=== PATIENT | female | born 1955 | race Asian ===

== ENCOUNTER 2020-11-06 14:06 | Inpatient (IN) | payer OTHER ==
[~2020-11-06] VITALS: Ht 160 cm; Wt 54.2 kg
[~2020-11-06 14:06] MED LIST: AMLO10TA55 PO; ASPI-556 PO; BENA10TA77 PO; CYCL10TA7 PO; DIPH50 PO; ERGO400T3 PO; GLIP5TAB11 PO; LEVO75 PO; METF-444 PO; OMEP20 PO; PRED10TA3 PO; PRED20TA3 PO; PRED50TA2 PO
[2020-11-06] MEDS ORDERED: IOHEXOL 350 MG/ML 75 ML VIAL ONE (14:17)
[2020-11-06] MEDS ORDERED: SODIUM CHLORIDE 0.9% 100 ML ONE (14:17)
[2020-11-06] MEDS ORDERED: LABETALOL HCL 5 MG/ML 20 ML VIAL IVP ONE (15:00)
[2020-11-06 15:33] LABS: BASOPHILS % (AUTO) 0.9 % (0.0-2.0); EOSINOPHILS % (AUTO) 0.9 % (1.0-6.0); HEMATOCRIT 32.7 % (36-46); HEMOGLOBIN 10.6 g/dL (12.0-16.0); LYMPHOCYTES # (AUTO) 1.4 K/uL (1.0-4.8); LYMPHOCYTES % (AUTO) 13.6 % (22.0-44.0); MEAN CORPUSCULAR HGB CONC 32.4 G/dL (31.0-37.0); MEAN CORPUSCULAR VOLUME 86 fL (80-100); MONOCYTES # (AUTO) 0.6 K/uL (0.1-1.0); MONOCYTES % (AUTO) 5.9 % (2.0-9.0); NEUTROPHILS # (AUTO) 8.1 K/uL (1.8-7.7); NEUTROPHILS % (AUTO) 78.7 % (40.0-70.0); PLATELET COUNT (AUTO) 346 K/uL (150-450); RED BLOOD CELL COUNT(AUTO) 3.78 MIL/uL (4.00-5.20); RED CELL DISTRIBUTION WIDTH 15.6 % (11.5-14.5)
[2020-11-06 15:43] LABS: PROTHROMBIN TIME 10.9 SEC (9.4-11.6)
[2020-11-06 15:49] LABS: CREATININE 1.05 mg/dL (0.60-1.30); POTASSIUM 3.7 mmol/L (3.5-5.1)
[2020-11-06 15:55] LABS: ALBUMIN 2.3 g/dL (3.4-5.0); BILIRUBIN,TOTAL 0.4 mg/dL (0.1-1.0)
[2020-11-06] MEDS ORDERED: NiCARDipine HCL 25 MG in DEXTROSE 5%-WATER 240 ML IV PRN (16:00)
[2020-11-06 17:57] LABS: COVID AG,FIA SOURCE NASOPHARYNGEAL
[2020-11-06 22:12] LABS: HEMOGLOBIN A1C 6.4 % (3.8-5.6)
[2020-11-06 22:20] LABS: CHOL/HDL RATIO 4.4 (3.9-5.7); THYROID STIMULATING HORMONE 6.14 uIU/mL (0.36-3.74)
[2020-11-06] MEDS: NiCARDipine HCL 25 MG in DEXTROSE 5%-WATER 240 ML IV PRN (22:25)
[2020-11-06] MEDS ORDERED: ASPIRIN 300 MG RECTAL SUPPOSITORY PR ONE (22:45)
[2020-11-07 07:04] LABS: BASOPHILS % (AUTO) 1.1 % (0.0-2.0); EOSINOPHILS % (AUTO) 1.5 % (1.0-6.0); HEMATOCRIT 36.3 % (36-46); HEMOGLOBIN 11.8 g/dL (12.0-16.0); LYMPHOCYTES # (AUTO) 2.1 K/uL (1.0-4.8); LYMPHOCYTES % (AUTO) 19.6 % (22.0-44.0); MEAN CORPUSCULAR HGB CONC 32.6 G/dL (31.0-37.0); MEAN CORPUSCULAR VOLUME 86 fL (80-100); MONOCYTES # (AUTO) 0.7 K/uL (0.1-1.0); MONOCYTES % (AUTO) 6.5 % (2.0-9.0); NEUTROPHILS # (AUTO) 7.5 K/uL (1.8-7.7); NEUTROPHILS % (AUTO) 71.3 % (40.0-70.0); PLATELET COUNT (AUTO) 396 K/uL (150-450); RED BLOOD CELL COUNT(AUTO) 4.23 MIL/uL (4.00-5.20); RED CELL DISTRIBUTION WIDTH 15.6 % (11.5-14.5)
[2020-11-07 07:25] LABS: ALBUMIN 2.7 g/dL (3.4-5.0); BILIRUBIN,TOTAL 0.4 mg/dL (0.1-1.0); CALCIUM, TOTAL 8.6 mg/dL (8.8-10.5); CREATININE 1.18 mg/dL (0.60-1.30); POTASSIUM 3.8 mmol/L (3.5-5.1); TOTAL PROTEIN, SERUM 6.9 g/dL (6.4-8.2)
[2020-11-07 08:00] VITALS: BP 164/66
[2020-11-07] MEDS ORDERED: DEXTROSE 50%-WATER 25 GM/50 ML SYRINGE IVP PRN (11:15)
[2020-11-07] MEDS ORDERED: ALBUTEROL SULFATE 2.5 MG/0.5 ML NEB SOLUTION NEB PRN (11:30)
[2020-11-07] MEDS ORDERED: IPRATROPIUM BROMIDE 0.5 MG/2.5 ML NEB SOLUTION NEB PRN (11:30)
[2020-11-07] MEDS ORDERED: BISACODYL 10 MG RECTAL RECTAL SUPPOSITORY PR PRN (11:45)
[2020-11-07] MEDS: ASPIRIN 300 MG RECTAL SUPPOSITORY PR SCH (11:47)
[2020-11-07] MEDS: PANTOPRAZOLE SODIUM 40 MG/VIAL IVP SCH (11:48)
[2020-11-07] MEDS: LEVOTHYROXINE SODIUM 100 MCG VIAL IVP SCH (12:31)
[2020-11-07] MEDS: NiCARDipine HCL 25 MG in DEXTROSE 5%-WATER 240 ML IV PRN ×3 (14:03→22:56)
[2020-11-07] MEDS: ALBUTEROL SULFATE 2.5 MG/0.5 ML NEB SOLUTION NEB SCH ×2 (16:09→20:00)
[2020-11-07] MEDS: IPRATROPIUM BROMIDE 0.5 MG/2.5 ML NEB SOLUTION NEB SCH ×2 (16:09→20:00)
[2020-11-08] MEDS: NiCARDipine HCL 25 MG in DEXTROSE 5%-WATER 240 ML IV PRN ×2 (02:19→05:57)
[2020-11-08 06:48] LABS: BASOPHILS % (AUTO) 1.1 % (0.0-2.0); EOSINOPHILS % (AUTO) 1.4 % (1.0-6.0); HEMOGLOBIN 11.2 g/dL (12.0-16.0); LYMPHOCYTES # (AUTO) 1.6 K/uL (1.0-4.8); LYMPHOCYTES % (AUTO) 13.2 % (22.0-44.0); MEAN CORPUSCULAR HGB CONC 32.9 G/dL (31.0-37.0); MEAN CORPUSCULAR VOLUME 85 fL (80-100); MONOCYTES % (AUTO) 8.1 % (2.0-9.0); NEUTROPHILS # (AUTO) 9.1 K/uL (1.8-7.7); NEUTROPHILS % (AUTO) 76.2 % (40.0-70.0); PLATELET COUNT (AUTO) 401 K/uL (150-450); RED BLOOD CELL COUNT(AUTO) 3.99 MIL/uL (4.00-5.20); RED CELL DISTRIBUTION WIDTH 15.3 % (11.5-14.5)
[2020-11-08 07:14] LABS: ALBUMIN 2.6 g/dL (3.4-5.0); BILIRUBIN,TOTAL 0.5 mg/dL (0.1-1.0); CALCIUM, TOTAL 8.6 mg/dL (8.8-10.5); CREATININE 1.39 mg/dL (0.60-1.30); POTASSIUM 4.1 mmol/L (3.5-5.1); TOTAL PROTEIN, SERUM 6.6 g/dL (6.4-8.2)
[2020-11-08] MEDS: ALBUTEROL SULFATE 2.5 MG/0.5 ML NEB SOLUTION NEB SCH ×3 (07:45→20:46)
[2020-11-08] MEDS: IPRATROPIUM BROMIDE 0.5 MG/2.5 ML NEB SOLUTION NEB SCH ×3 (07:45→20:46)
[2020-11-08] MEDS: ASPIRIN 300 MG RECTAL SUPPOSITORY PR SCH (09:00)
[2020-11-08] MEDS: PANTOPRAZOLE SODIUM 40 MG/VIAL IVP SCH (09:00)
[2020-11-08] MEDS: LEVOTHYROXINE SODIUM 100 MCG VIAL IVP SCH (09:00)
[2020-11-08] MEDS ORDERED: LABETALOL HCL 5 MG/ML 20 ML VIAL IVP PRN (10:30)
[2020-11-08 12:27] VITALS: BP 163/82
[2020-11-08 13:14] LABS: GLUCOMETER DEV NAME(LOC) 5N.3; GLUCOSE,POINT OF CARE 199 MG/DL (70-110)
[2020-11-08 16:24] VITALS: BP 160/79
[2020-11-08] MEDS: SODIUM CHLORIDE 0.9% 1,000 ML IV SCH (17:14)
[2020-11-08 19:05] VITALS: BP 154/80
[2020-11-08 19:15] LABS: GLUCOMETER DEV NAME(LOC) 5N.1C; GLUCOSE,POINT OF CARE 157 MG/DL (70-110)
[2020-11-08] MEDS: INSULIN LISPRO 100 UNITS/ML SQ PRN (20:43)
[2020-11-08 20:54] LABS: GLUCOMETER DEV NAME(LOC) 5S.1; GLUCOSE,POINT OF CARE 165 MG/DL (70-110)
[2020-11-09] VITALS (7 sets, daily range): BP systolic 152–194; BP diastolic 74–113
[2020-11-09] MEDS: INSULIN LISPRO 100 UNITS/ML SQ PRN ×3 (02:28→20:39)
[2020-11-09 02:39] LABS: GLUCOMETER DEV NAME(LOC) 5N.1C; GLUCOSE,POINT OF CARE 125 MG/DL (70-110)
[2020-11-09 05:43] LABS: GLUCOMETER DEV NAME(LOC) 5N.1C; GLUCOSE,POINT OF CARE 120 MG/DL (70-110)
[2020-11-09 07:01] LABS: BASOPHILS % (AUTO) 0.7 % (0.0-2.0); EOSINOPHILS % (AUTO) 0.7 % (1.0-6.0); HEMATOCRIT 32.8 % (36-46); HEMOGLOBIN 10.7 g/dL (12.0-16.0); LYMPHOCYTES # (AUTO) 1.3 K/uL (1.0-4.8); LYMPHOCYTES % (AUTO) 11.5 % (22.0-44.0); MEAN CORPUSCULAR HEMOGLOBIN 28.2 pg (26.0-34.0); MEAN CORPUSCULAR HGB CONC 32.5 G/dL (31.0-37.0); MEAN CORPUSCULAR VOLUME 87 fL (80-100); MONOCYTES # (AUTO) 0.9 K/uL (0.1-1.0); MONOCYTES % (AUTO) 8.1 % (2.0-9.0); NEUTROPHILS # (AUTO) 8.6 K/uL (1.8-7.7); PLATELET COUNT (AUTO) 365 K/uL (150-450); RED BLOOD CELL COUNT(AUTO) 3.78 MIL/uL (4.00-5.20); RED CELL DISTRIBUTION WIDTH 15.3 % (11.5-14.5)
[2020-11-09 07:15] LABS: ALBUMIN 2.3 g/dL (3.4-5.0); BILIRUBIN,TOTAL 0.4 mg/dL (0.1-1.0); CALCIUM, TOTAL 7.9 mg/dL (8.8-10.5); CREATININE 1.28 mg/dL (0.60-1.30); POTASSIUM 3.4 mmol/L (3.5-5.1); TOTAL PROTEIN, SERUM 6.2 g/dL (6.4-8.2)
[2020-11-09] MEDS: CLOPIDOGREL BISULFATE 75 MG TABLET PO SCH (08:45)
[2020-11-09] MEDS: PANTOPRAZOLE SODIUM 40 MG/VIAL IVP SCH (08:45)
[2020-11-09] MEDS: LEVOTHYROXINE SODIUM 75 MCG TABLET PO SCH (10:14)
[2020-11-09] MEDS: ASPIRIN 81 MG CHEWABLE TABLET PO SCH (10:14)
[2020-11-09] MEDS: LISINOPRIL 5 MG TABLET PO SCH (10:14)
[2020-11-09] MEDS: ALBUTEROL SULFATE 2.5 MG/0.5 ML NEB SOLUTION NEB SCH ×3 (10:28→19:57)
[2020-11-09] MEDS: IPRATROPIUM BROMIDE 0.5 MG/2.5 ML NEB SOLUTION NEB SCH ×3 (10:28→19:57)
[2020-11-09] MEDS ORDERED: POTASSIUM CHL 10 MEQ/WATER 50 ML IV PRN (14:30)
[2020-11-09 15:43] LABS: GLUCOMETER DEV NAME(LOC) 5S.2B; GLUCOSE,POINT OF CARE 145 MG/DL (70-110)
[2020-11-09] MEDS: POTASSIUM CHLORIDE 20 MEQ ER TABLET PO PRN (18:31)
[2020-11-09] MEDS: ENALAPRILAT DIHYDRATE 1.25 MG/ML VIAL IVP PRN (20:51)
[2020-11-09] MEDS: SODIUM CHLORIDE 0.9% 1,000 ML IV SCH ×2 (20:52→20:53)
[2020-11-09] MEDS ORDERED: SIMVASTATIN 40 MG TABLET PO SCH (21:00)
[2020-11-10] VITALS (11 sets, daily range): BP systolic 142–203; BP diastolic 66–106
[2020-11-10] MEDS ORDERED: METOPROLOL SUCCINATE 25 MG ER TABLET PO SCH
[2020-11-10] MEDS: AmLODIPine BESYLATE 5 MG TABLET PO SCH ×2 (00:10→08:10)
[2020-11-10] MEDS: ENALAPRILAT DIHYDRATE 1.25 MG/ML VIAL IVP PRN ×3 (04:33→18:17)
[2020-11-10] MEDS: LEVOTHYROXINE SODIUM 75 MCG TABLET PO SCH (04:33)
[2020-11-10 05:26] LABS: GLUCOMETER DEV NAME(LOC) 5S.1; GLUCOSE,POINT OF CARE 217 MG/DL (70-110)
[2020-11-10 05:26] LABS: GLUCOMETER DEV NAME(LOC) 5S.1; GLUCOSE,POINT OF CARE 140 MG/DL (70-110)
[2020-11-10 05:28] LABS: GLUCOMETER DEV NAME(LOC) 5S.1; GLUCOSE,POINT OF CARE 128 MG/DL (70-110)
[2020-11-10] MEDS: CloNIDine HCL 0.1 MG TABLET PO PRN ×2 (06:52→16:39)
[2020-11-10 07:00] LABS: BASOPHILS % (AUTO) 0.7 % (0.0-2.0); EOSINOPHILS % (AUTO) 2.1 % (1.0-6.0); HEMATOCRIT 34.8 % (36-46); HEMOGLOBIN 11.2 g/dL (12.0-16.0); LYMPHOCYTES # (AUTO) 1.8 K/uL (1.0-4.8); LYMPHOCYTES % (AUTO) 15.3 % (22.0-44.0); MEAN CORPUSCULAR HGB CONC 32.2 G/dL (31.0-37.0); MEAN CORPUSCULAR VOLUME 87 fL (80-100); MONOCYTES # (AUTO) 1.2 K/uL (0.1-1.0); MONOCYTES % (AUTO) 9.9 % (2.0-9.0); NEUTROPHILS # (AUTO) 8.5 K/uL (1.8-7.7); PLATELET COUNT (AUTO) 359 K/uL (150-450); RED BLOOD CELL COUNT(AUTO) 4.01 MIL/uL (4.00-5.20); RED CELL DISTRIBUTION WIDTH 15.7 % (11.5-14.5)
[2020-11-10 07:17] LABS: ALBUMIN 2.4 g/dL (3.4-5.0); BILIRUBIN,TOTAL 0.4 mg/dL (0.1-1.0); CALCIUM, TOTAL 8.5 mg/dL (8.8-10.5); CREATININE 1.06 mg/dL (0.60-1.30); POTASSIUM 4.1 mmol/L (3.5-5.1); TOTAL PROTEIN, SERUM 6.7 g/dL (6.4-8.2)
[2020-11-10] MEDS: PANTOPRAZOLE SODIUM 40 MG/VIAL IVP SCH (08:10)
[2020-11-10] MEDS: CLOPIDOGREL BISULFATE 75 MG TABLET PO SCH (08:10)
[2020-11-10] MEDS: ASPIRIN 81 MG CHEWABLE TABLET PO SCH (08:10)
[2020-11-10] MEDS: LISINOPRIL 5 MG TABLET PO SCH (08:10)
[2020-11-10] MEDS: METOPROLOL SUCCINATE 50 MG ER TABLET PO SCH ×2 (08:11→21:16)
[2020-11-10] MEDS: ALBUTEROL SULFATE 2.5 MG/0.5 ML NEB SOLUTION NEB SCH ×3 (08:42→20:51)
[2020-11-10] MEDS: IPRATROPIUM BROMIDE 0.5 MG/2.5 ML NEB SOLUTION NEB SCH ×3 (08:42→20:51)
[2020-11-10] MEDS ORDERED: LISINOPRIL 10 MG TABLET PO SCH (10:00)
[2020-11-10] MEDS ORDERED: LISINOPRIL 5 MG TABLET PO ONE (10:15)
[2020-11-10] MEDS: SODIUM CHLORIDE 0.9% 1,000 ML IV SCH (10:56)
[2020-11-10] MEDS: INSULIN LISPRO 100 UNITS/ML SQ PRN ×2 (12:19→18:16)
[2020-11-10 13:35] LABS: GLUCOMETER DEV NAME(LOC) 5S.2B; GLUCOSE,POINT OF CARE 136 MG/DL (70-110)
[2020-11-10 13:35] LABS: GLUCOMETER DEV NAME(LOC) 5S.2B; GLUCOSE,POINT OF CARE 167 MG/DL (70-110)
[2020-11-10 20:44] LABS: GLUCOMETER DEV NAME(LOC) 5S.2B; GLUCOSE,POINT OF CARE 143 MG/DL (70-110)
[2020-11-10 20:44] LABS: GLUCOMETER DEV NAME(LOC) 5S.2B; GLUCOSE,POINT OF CARE 131 MG/DL (70-110)
[2020-11-10] MEDS: ATORVASTATIN CALCIUM 40 MG TABLET PO SCH (21:16)
[2020-11-10] MEDS: LISINOPRIL 10 MG TABLET PO SCH (21:16)
[2020-11-11] VITALS (14 sets, daily range): BP systolic 163–204; BP diastolic 70–88
[2020-11-11] MEDS: CloNIDine HCL 0.1 MG TABLET PO PRN ×2 (00:10→09:12)
[2020-11-11] MEDS: SODIUM CHLORIDE 0.9% 1,000 ML IV SCH ×2 (00:10→13:45)
[2020-11-11] MEDS: ENALAPRILAT DIHYDRATE 1.25 MG/ML VIAL IVP PRN ×2 (05:11→14:46)
[2020-11-11 06:11] LABS: GLUCOMETER DEV NAME(LOC) 5S.2B; GLUCOSE,POINT OF CARE 133 MG/DL (70-110)
[2020-11-11 07:15] LABS: BASOPHILS % (AUTO) 0.8 % (0.0-2.0); HEMATOCRIT 31.8 % (36-46); HEMOGLOBIN 10.4 g/dL (12.0-16.0); LYMPHOCYTES # (AUTO) 2.4 K/uL (1.0-4.8); LYMPHOCYTES % (AUTO) 22.4 % (22.0-44.0); MEAN CORPUSCULAR HEMOGLOBIN 28.2 pg (26.0-34.0); MEAN CORPUSCULAR HGB CONC 32.7 G/dL (31.0-37.0); MEAN CORPUSCULAR VOLUME 86 fL (80-100); MONOCYTES # (AUTO) 1.1 K/uL (0.1-1.0); MONOCYTES % (AUTO) 9.8 % (2.0-9.0); NEUTROPHILS # (AUTO) 6.8 K/uL (1.8-7.7); PLATELET COUNT (AUTO) 334 K/uL (150-450); RED BLOOD CELL COUNT(AUTO) 3.68 MIL/uL (4.00-5.20); RED CELL DISTRIBUTION WIDTH 15.5 % (11.5-14.5)
[2020-11-11 07:51] LABS: ALBUMIN 2.2 g/dL (3.4-5.0); BILIRUBIN,TOTAL 0.3 mg/dL (0.1-1.0); CALCIUM, TOTAL 8.5 mg/dL (8.8-10.5); CREATININE 1.06 mg/dL (0.60-1.30); POTASSIUM 3.8 mmol/L (3.5-5.1); TOTAL PROTEIN, SERUM 6.3 g/dL (6.4-8.2)
[2020-11-11] MEDS: PANTOPRAZOLE SODIUM 40 MG/VIAL IVP SCH (08:05)
[2020-11-11] MEDS: CLOPIDOGREL BISULFATE 75 MG TABLET PO SCH (08:05)
[2020-11-11] MEDS: LEVOTHYROXINE SODIUM 75 MCG TABLET PO SCH (08:05)
[2020-11-11] MEDS: ASPIRIN 81 MG CHEWABLE TABLET PO SCH (08:05)
[2020-11-11] MEDS: AmLODIPine BESYLATE 5 MG TABLET PO SCH (08:05)
[2020-11-11] MEDS: METOPROLOL SUCCINATE 50 MG ER TABLET PO SCH ×2 (08:05→20:00)
[2020-11-11] MEDS: LISINOPRIL 10 MG TABLET PO SCH (08:06)
[2020-11-11] MEDS: ALBUTEROL SULFATE 2.5 MG/0.5 ML NEB SOLUTION NEB SCH ×3 (08:20→20:30)
[2020-11-11] MEDS: IPRATROPIUM BROMIDE 0.5 MG/2.5 ML NEB SOLUTION NEB SCH ×3 (08:20→20:30)
[2020-11-11] MEDS ORDERED: LISINOPRIL 10 MG TABLET PO ONE (10:45)
[2020-11-11] MEDS ORDERED: SPIR-37 PO (11:32)
[2020-11-11] MEDS ORDERED: AMLO-257 PO (11:32)
[2020-11-11] MEDS ORDERED: HYDR-4174 PO (11:32)
[2020-11-11] MEDS ORDERED: CARV25TA32 PO (11:32)
[2020-11-11] MEDS ORDERED: ATOR-2 PO (11:32)
[2020-11-11] MEDS ORDERED: CHOL400T56 PO (11:32)
[2020-11-11] MEDS ORDERED: LEVO50 PO (11:32)
[2020-11-11] MEDS ORDERED: INSU100I26 SQ (11:32)
[2020-11-11] MEDS ORDERED: ASPI-1444 PO (11:32)
[2020-11-11 11:36] LABS: GLUCOMETER DEV NAME(LOC) 5S.1; GLUCOSE,POINT OF CARE 147 MG/DL (70-110)
[2020-11-11] MEDS ORDERED: HydrALAZINE HCL 25 MG TABLET PO SCH (12:00)
[2020-11-11] MEDS: INSULIN LISPRO 100 UNITS/ML SQ PRN ×2 (12:16→21:27)
[2020-11-11] MEDS ORDERED: LISINOPRIL 20 MG TABLET PO ONE (16:15)
[2020-11-11] MEDS: NIFEdipine 30 MG ER TABLET PO SCH (17:51)
[2020-11-11] MEDS: HydrALAZINE HCL 50 MG TABLET PO SCH (19:52)
[2020-11-11] MEDS: ATORVASTATIN CALCIUM 40 MG TABLET PO SCH (20:00)
[2020-11-11] MEDS ORDERED: LISINOPRIL 20 MG TABLET PO SCH (21:00)
[2020-11-11 21:29] LABS: GLUCOMETER DEV NAME(LOC) 5S.2B; GLUCOSE,POINT OF CARE 169 MG/DL (70-110)
[2020-11-11] MEDS: AmLODIPine BESYLATE 10 MG TABLET PO SCH (21:51)
[2020-11-12] VITALS (9 sets, daily range): BP systolic 126–165; BP diastolic 60–76
[2020-11-12] MEDS: HydrALAZINE HCL 50 MG TABLET PO SCH ×5 (00:23→23:48)
[2020-11-12] MEDS: SODIUM CHLORIDE 0.9% 1,000 ML IV SCH ×2 (02:37→17:18)
[2020-11-12 02:52] LABS: GLUCOMETER DEV NAME(LOC) 5S.1; GLUCOSE,POINT OF CARE 109 MG/DL (70-110)
[2020-11-12] MEDS: LEVOTHYROXINE SODIUM 75 MCG TABLET PO SCH (05:58)
[2020-11-12 06:18] LABS: GLUCOMETER DEV NAME(LOC) 5S.1; GLUCOSE,POINT OF CARE 113 MG/DL (70-110)
[2020-11-12 07:15] LABS: BASOPHILS % (AUTO) 0.9 % (0.0-2.0); EOSINOPHILS % (AUTO) 4.7 % (1.0-6.0); HEMATOCRIT 34.1 % (36-46); LYMPHOCYTES # (AUTO) 2.2 K/uL (1.0-4.8); LYMPHOCYTES % (AUTO) 22.3 % (22.0-44.0); MEAN CORPUSCULAR HGB CONC 32.4 G/dL (31.0-37.0); MEAN CORPUSCULAR VOLUME 87 fL (80-100); MONOCYTES # (AUTO) 0.8 K/uL (0.1-1.0); MONOCYTES % (AUTO) 8.6 % (2.0-9.0); NEUTROPHILS # (AUTO) 6.1 K/uL (1.8-7.7); NEUTROPHILS % (AUTO) 63.5 % (40.0-70.0); PLATELET COUNT (AUTO) 361 K/uL (150-450); RED BLOOD CELL COUNT(AUTO) 3.94 MIL/uL (4.00-5.20); RED CELL DISTRIBUTION WIDTH 15.3 % (11.5-14.5)
[2020-11-12 07:44] LABS: ALBUMIN 2.2 g/dL (3.4-5.0); BILIRUBIN,TOTAL 0.4 mg/dL (0.1-1.0); CALCIUM, TOTAL 8.5 mg/dL (8.8-10.5); CREATININE 0.94 mg/dL (0.60-1.30); MAGNESIUM 1.9 mg/dL (1.80-2.40); POTASSIUM 3.5 mmol/L (3.5-5.1); TOTAL PROTEIN, SERUM 6.3 g/dL (6.4-8.2)
[2020-11-12] MEDS: ALBUTEROL SULFATE 2.5 MG/0.5 ML NEB SOLUTION NEB SCH ×3 (07:46→19:54)
[2020-11-12] MEDS: IPRATROPIUM BROMIDE 0.5 MG/2.5 ML NEB SOLUTION NEB SCH ×3 (07:46→19:54)
[2020-11-12] MEDS: PANTOPRAZOLE SODIUM 40 MG/VIAL IVP SCH (08:07)
[2020-11-12] MEDS: ASPIRIN 81 MG CHEWABLE TABLET PO SCH (08:08)
[2020-11-12] MEDS: AmLODIPine BESYLATE 10 MG TABLET PO SCH (08:08)
[2020-11-12] MEDS: CLOPIDOGREL BISULFATE 75 MG TABLET PO SCH (08:08)
[2020-11-12] MEDS: LISINOPRIL 20 MG TABLET PO SCH (09:00)
[2020-11-12] MEDS: NIFEdipine 30 MG ER TABLET PO SCH ×2 (09:08→20:36)
[2020-11-12] MEDS: METOPROLOL SUCCINATE 50 MG ER TABLET PO SCH ×2 (10:44→20:36)
[2020-11-12 12:36] LABS: GLUCOMETER DEV NAME(LOC) 5S.2B; GLUCOSE,POINT OF CARE 137 MG/DL (70-110)
[2020-11-12 18:38] LABS: COVID AG,FIA SOURCE NASOPHARYNGEAL
[2020-11-12] MEDS: INSULIN LISPRO 100 UNITS/ML SQ PRN ×2 (18:42→21:41)
[2020-11-12 20:30] LABS: GLUCOMETER DEV NAME(LOC) 5S.1; GLUCOSE,POINT OF CARE 154 MG/DL (70-110)
[2020-11-12] MEDS: ATORVASTATIN CALCIUM 40 MG TABLET PO SCH (20:36)
[2020-11-12 22:01] LABS: GLUCOMETER DEV NAME(LOC) 5S.1; GLUCOSE,POINT OF CARE 151 MG/DL (70-110)
[2020-11-13 04:12] VITALS: BP 155/69
[2020-11-13] MEDS: HydrALAZINE HCL 50 MG TABLET PO SCH ×4 (06:36→23:27)
[2020-11-13] MEDS: LEVOTHYROXINE SODIUM 75 MCG TABLET PO SCH (06:36)
[2020-11-13] MEDS: SODIUM CHLORIDE 0.9% 1,000 ML IV SCH ×2 (06:37→20:24)
[2020-11-13 06:40] LABS: GLUCOMETER DEV NAME(LOC) 5N.3; GLUCOSE,POINT OF CARE 134 MG/DL (70-110)
[2020-11-13 06:50] LABS: BASOPHILS % (AUTO) 0.9 % (0.0-2.0); EOSINOPHILS % (AUTO) 3.6 % (1.0-6.0); HEMATOCRIT 34.4 % (36-46); HEMOGLOBIN 11.1 g/dL (12.0-16.0); LYMPHOCYTES # (AUTO) 1.7 K/uL (1.0-4.8); LYMPHOCYTES % (AUTO) 14.9 % (22.0-44.0); MEAN CORPUSCULAR HEMOGLOBIN 27.6 pg (26.0-34.0); MEAN CORPUSCULAR HGB CONC 32.2 G/dL (31.0-37.0); MEAN CORPUSCULAR VOLUME 86 fL (80-100); MONOCYTES # (AUTO) 0.9 K/uL (0.1-1.0); MONOCYTES % (AUTO) 8.1 % (2.0-9.0); NEUTROPHILS # (AUTO) 8.2 K/uL (1.8-7.7); NEUTROPHILS % (AUTO) 72.5 % (40.0-70.0); PLATELET COUNT (AUTO) 384 K/uL (150-450); RED BLOOD CELL COUNT(AUTO) 4.01 MIL/uL (4.00-5.20); RED CELL DISTRIBUTION WIDTH 15.2 % (11.5-14.5)
[2020-11-13 07:32] VITALS: BP 157/67
[2020-11-13 07:35] LABS: ALBUMIN 2.4 g/dL (3.4-5.0); BILIRUBIN,TOTAL 0.3 mg/dL (0.1-1.0); CALCIUM, TOTAL 8.4 mg/dL (8.8-10.5); CREATININE 1.04 mg/dL (0.60-1.30); POTASSIUM 3.4 mmol/L (3.5-5.1); TOTAL PROTEIN, SERUM 6.5 g/dL (6.4-8.2)
[2020-11-13] MEDS: NIFEdipine 30 MG ER TABLET PO SCH ×2 (08:10→20:24)
[2020-11-13] MEDS: ASPIRIN 81 MG CHEWABLE TABLET PO SCH (08:10)
[2020-11-13] MEDS: CLOPIDOGREL BISULFATE 75 MG TABLET PO SCH (08:10)
[2020-11-13] MEDS: PANTOPRAZOLE SODIUM 40 MG/VIAL IVP SCH (08:16)
[2020-11-13] MEDS: IPRATROPIUM BROMIDE 0.5 MG/2.5 ML NEB SOLUTION NEB SCH ×3 (09:35→20:35)
[2020-11-13] MEDS: ALBUTEROL SULFATE 2.5 MG/0.5 ML NEB SOLUTION NEB SCH ×3 (09:35→20:34)
[2020-11-13] MEDS: LISINOPRIL 20 MG TABLET PO SCH (09:57)
[2020-11-13] MEDS: METOPROLOL SUCCINATE 50 MG ER TABLET PO SCH ×2 (09:57→20:24)
[2020-11-13 10:51] VITALS: BP 156/72
[2020-11-13] MEDS: POTASSIUM CHLORIDE 20 MEQ ER TABLET PO PRN (11:47)
[2020-11-13] MEDS ORDERED: CLOP75TA60 PO (12:09)
[2020-11-13] MEDS ORDERED: ATOR40TA28 PO (12:09)
[2020-11-13] MEDS ORDERED: AUD NEB ×2 (12:09→12:13)
[2020-11-13] MEDS ORDERED: ASPI-1450 PO (12:09)
[2020-11-13] MEDS ORDERED: HYDR50TA36 PO (12:10)
[2020-11-13] MEDS ORDERED: LEVO75 PO (12:11)
[2020-11-13] MEDS ORDERED: LISI-894 PO (12:11)
[2020-11-13] MEDS ORDERED: METO-558 PO (12:12)
[2020-11-13] MEDS ORDERED: NIFE30TA5 PO (12:13)
[2020-11-13] MEDS ORDERED: BISA10SU11 PR (12:14)
[2020-11-13] MEDS ORDERED: CLON0.1T2 PO (12:14)
[2020-11-13] MEDS ORDERED: INSU100V SQ (12:15)
[2020-11-13] MEDS: INSULIN LISPRO 100 UNITS/ML SQ PRN ×2 (12:49→18:09)
[2020-11-13 14:50] LABS: GLUCOMETER DEV NAME(LOC) 5S.1; GLUCOSE,POINT OF CARE 156 MG/DL (70-110)
[2020-11-13 15:10] VITALS: BP 148/75
[2020-11-13 19:20] VITALS: BP 160/72
[2020-11-13] MEDS: ATORVASTATIN CALCIUM 40 MG TABLET PO SCH (20:24)
[2020-11-13 22:02] LABS: GLUCOMETER DEV NAME(LOC) 5S.1; GLUCOSE,POINT OF CARE 165 MG/DL (70-110)
[2020-11-13 22:03] LABS: GLUCOMETER DEV NAME(LOC) 5S.1; GLUCOSE,POINT OF CARE 121 MG/DL (70-110)
[2020-11-13 23:20] VITALS: BP 149/70
[2020-11-14 03:40] VITALS: BP 158/77
[2020-11-14] MEDS: LEVOTHYROXINE SODIUM 75 MCG TABLET PO SCH (06:54)
[2020-11-14] MEDS: HydrALAZINE HCL 50 MG TABLET PO SCH ×3 (06:54→17:56)
[2020-11-14 07:19] VITALS: BP 156/71
[2020-11-14] MEDS: LISINOPRIL 20 MG TABLET PO SCH (07:53)
[2020-11-14] MEDS: ASPIRIN 81 MG CHEWABLE TABLET PO SCH (07:53)
[2020-11-14] MEDS: CLOPIDOGREL BISULFATE 75 MG TABLET PO SCH (07:53)
[2020-11-14] MEDS: NIFEdipine 30 MG ER TABLET PO SCH (07:54)
[2020-11-14] MEDS: PANTOPRAZOLE SODIUM 40 MG/VIAL IVP SCH (07:54)
[2020-11-14] MEDS: METOPROLOL SUCCINATE 50 MG ER TABLET PO SCH (07:54)
[2020-11-14] MEDS: ALBUTEROL SULFATE 2.5 MG/0.5 ML NEB SOLUTION NEB SCH ×2 (08:18→13:11)
[2020-11-14] MEDS: IPRATROPIUM BROMIDE 0.5 MG/2.5 ML NEB SOLUTION NEB SCH ×2 (08:18→13:11)
[2020-11-14 11:21] VITALS: BP 164/73
[2020-11-14] MEDS: INSULIN LISPRO 100 UNITS/ML SQ PRN ×2 (11:33→17:58)
[2020-11-14 12:22] LABS: GLUCOMETER DEV NAME(LOC) 5S.1; GLUCOSE,POINT OF CARE 199 MG/DL (70-110)
[2020-11-14 15:11] VITALS: BP 161/67
[2020-11-14] MEDS: CloNIDine HCL 0.1 MG TABLET PO PRN (16:06)
[2020-11-14 19:47] LABS: GLUCOMETER DEV NAME(LOC) 5N.1C; GLUCOSE,POINT OF CARE 138 MG/DL (70-110)
[2020-11-14 19:48] LABS: GLUCOMETER DEV NAME(LOC) 5N.1C; GLUCOSE,POINT OF CARE 193 MG/DL (70-110)
== END 2020-11-14 18:10 | DRG 45 ==
LOC: EMS 14:08 → ICUN 11-07 10:22 → 5S 11-08 10:48
PROVIDERS: ADMIT Hospitalist; ATTEND Hospitalist
DX: I63.9 Cerebral infarction, unspecified (principal); I11.9 Hypertensive heart disease without heart failure; G81.91 Hemiplegia, unspecified affecting right dominant side; E03.9 Hypothyroidism, unspecified; E78.00 Pure hypercholesterolemia, unspecified; E78.5 Hyperlipidemia, unspecified; E11.9 Type 2 diabetes mellitus without complications; R13.10 Dysphagia, unspecified; R29.810 Facial weakness; Z20.822 Contact with and (suspected) exposure to COVID-19; I16.1 Hypertensive emergency; Z79.899 Other long term (current) drug therapy
CPT/HCPCS: 70496; 70551; 71045; 80053; 80061; 82947; 82962; 83036; 83735; 84132; 84443; 84484; 85025; 85610; 85730; 86850; 86900; 86901; 87081; 92507; 92526; 92610; 93005; 93306; 93971; 94640; 97110; 97112; 97140; 97162; 97166; 97530; 97535; 99291; C9113; G0378; J3490; J7030; J7050; J7060; Q9967; 36415-L1; 36415-TC; 70450; 70450-TC; J7613

== ENCOUNTER 2020-11-30 09:26 | Inpatient (IN) | payer MEDICAID, OTHER ==
[~2020-11-30] VITALS: Ht 157.5 cm; Wt 57.5 kg
[~2020-11-30 09:26] MED LIST changes: -AMLO10TA55 PO; +ASPI-1450 PO; -ASPI-556 PO; +ATOR-2 PO; +ATOR40TA28 PO; +AUD NEB; -BENA10TA77 PO; +BISA10SU11 PR; +CHOL400T56 PO; +CLON0.1T2 PO; +CLOP75TA60 PO; -CYCL10TA7 PO; -DIPH50 PO; -ERGO400T3 PO; -GLIP5TAB11 PO; +HYDR50TA36 PO; +INSU100V SQ; +LISI-894 PO; -METF-444 PO; +METO-558 PO; +NIFE30TA5 PO; -PRED10TA3 PO; -PRED20TA3 PO; -PRED50TA2 PO
[2020-11-30] MEDS ORDERED: SODIUM CHLORIDE 0.9% 1,000 ML IV ONE (09:45)
[2020-11-30 09:52] LABS: BASOPHILS % (AUTO) 0.3 % (0.0-2.0); EOSINOPHILS % (AUTO) 0 % (1.0-6.0); HEMOGLOBIN 12.6 g/dL (12.0-16.0); LYMPHOCYTES # (AUTO) 1.2 K/uL (1.0-4.8); LYMPHOCYTES % (AUTO) 6.1 % (22.0-44.0); MEAN CORPUSCULAR HEMOGLOBIN 27.6 pg (26.0-34.0); MEAN CORPUSCULAR HGB CONC 30.8 G/dL (31.0-37.0); MEAN CORPUSCULAR VOLUME 90 fL (80-100); MONOCYTES # (AUTO) 0.9 K/uL (0.1-1.0); MONOCYTES % (AUTO) 4.6 % (2.0-9.0); NEUTROPHILS # (AUTO) 17.3 K/uL (1.8-7.7); PLATELET COUNT (AUTO) 295 K/uL (150-450); RED BLOOD CELL COUNT(AUTO) 4.58 MIL/uL (4.00-5.20); RED CELL DISTRIBUTION WIDTH 15.4 % (11.5-14.5)
[2020-11-30 10:03] LABS: TROPONIN I 0.22 ng/mL (0.00-0.05)
[2020-11-30 10:04] LABS: ALANINE AMINOTRANSFERASE 21 U/L (12-78); ALBUMIN 2.4 g/dL (3.4-5.0); ALKALINE PHOSPHATASE 88 U/L (46-116); ANION GAP 12 mmol/L (8-16); ASPARTATE AMINOTRANSFERASE 20 U/L (15-37); BILIRUBIN,TOTAL 0.3 mg/dL (0.1-1.0); CALCIUM, TOTAL 8.6 mg/dL (8.8-10.5); CARBON DIOXIDE 32 mmol/L (22-29); CHLORIDE 126 mmol/L (98-107); CREATINE KINASE, TOTAL ONLY 582 U/L (26-192); CREATININE 2.99 mg/dL (0.60-1.30); GLOMERULAR FILTR. RATE CALC 16 mL/min (>60); PHOSPHORUS 4.2 mg/dL (2.5-4.9); POTASSIUM 4.4 mmol/L (3.5-5.1); PROTHROMBIN TIME 10.6 SEC (9.4-11.6); TOTAL PROTEIN, SERUM 7.2 g/dL (6.4-8.2); UREA NITROGEN, BLOOD 91 mg/dL (7-18)
[2020-11-30 10:05] LABS: GLUCOSE,POINT OF CARE 406 MG/DL (70-110)
[2020-11-30 10:07] LABS: GLUCOSE,RANDOM 522 mg/dL (70-110); SODIUM SERUM 170 mmol/L (136-145)
[2020-11-30] MEDS ORDERED: INSULIN REGULAR, HUMAN 100 UNITS/ML IVP ONE (10:45)
[2020-11-30 10:47] LABS: B-TYPE NATRIURETIC PEPTIDE 268 pg/mL (0-100)
[2020-11-30] MEDS ORDERED: ONDANSETRON HCL 4 MG/2 ML VIAL IVP PRN ×2 (11:00→15:00)
[2020-11-30] MEDS ORDERED: 0.9% SODIUM CHLORIDE 10 ML SYRINGE IVP PRN (11:00)
[2020-11-30 11:32] LABS: COVID AG,FIA SOURCE NASOPHARYNGEAL
[2020-11-30 11:47] LABS: GLUCOSE,POINT OF CARE 304 MG/DL (70-110)
[2020-11-30 13:25] LABS: APPEARANCE,URINE TURBID (CLEAR); BILIRUBIN,URINE NEGATIVE (NEGATIVE); GLUCOSE, URINE (UA) 100 mg/dL (NEGATIVE); KETONES,URINE TRACE mg/dL (NEGATIVE); LEUKOCYTE ESTERASE ,URINE LARGE (NEGATIVE); NITRATE,URINE NEGATIVE (NEGATIVE); OCCULT BLOOD,URINE SMALL (NEGATIVE); PROTEIN,URINE SEE CONFIRM (NEGATIVE); UROBILINOGEN,URINE 0.2 mg/dL (<=1.0)
[2020-11-30 13:37] LABS: BACTERIA,URINE Many /HPF (None Seen); SULFOSALICYLIC ACID,URINE 3+ (Negative); WBC,URINE 51-100 /HPF (0-5)
[2020-11-30 14:59] LABS: GLUCOSE,POINT OF CARE 317 MG/DL (70-110)
[2020-11-30] MEDS ORDERED: MAGNESIUM HYDROXIDE SUSPENSION 30 ML UDCUP PO PRN (15:00)
[2020-11-30] MEDS ORDERED: DEXTROSE 5%-WATER 500 ML IV ONE (15:00)
[2020-11-30] MEDS ORDERED: DEXTROSE 50%-WATER 25 GM/50 ML SYRINGE IVP PRN (15:00)
[2020-11-30] MEDS ORDERED: ACETAMINOPHEN 325 MG TABLET PO PRN (15:00)
[2020-11-30] MEDS ORDERED: BISACODYL 10 MG RECTAL RECTAL SUPPOSITORY PR PRN (15:00)
[2020-11-30] MEDS ORDERED: ZOLPIDEM TARTRATE 5 MG TABLET PO PRN (15:00)
[2020-11-30] MEDS ORDERED: HYDROCODONE/ACETAMINOPHEN 5-325 MG TABLET PO PRN (15:00)
[2020-11-30] MEDS ORDERED: SODIUM CHLORIDE 38.5 MEQ in WATER FOR INJECTION,STERILE 1,000 ML IV ONE (17:30)
[2020-11-30] MEDS: HydrALAZINE HCL 20 MG/ML VIAL IVP PRN (18:00)
[2020-11-30] MEDS: ATORVASTATIN CALCIUM 40 MG TABLET PO SCH ×3 (20:25→20:55)
[2020-11-30] MEDS: DOCUSATE SODIUM 100 MG CAPSULE PO SCH ×3 (20:25→20:57)
[2020-11-30] MEDS: INSULIN LISPRO 100 UNITS/ML SQ PRN (20:28)
[2020-11-30] MEDS: INSULIN GLARGINE,HUM.REC.ANLOG 100 UNITS/ML SQ SCH (20:29)
[2020-11-30 20:30] LABS: GLUCOSE,POINT OF CARE 377 MG/DL (70-110)
[2020-11-30] MEDS: NIFEdipine 30 MG ER TABLET PO SCH ×2 (20:48→20:56)
[2020-11-30] MEDS: CHOLECALCIFEROL (VIT D3) 400 UNITS [10 MCG] TABLET PO SCH ×2 (20:48→20:56)
[2020-11-30] MEDS: MORPHINE SULFATE 2 MG/ML SYRINGE IVP PRN (20:50)
[2020-11-30 21:11] LABS: CALCIUM, TOTAL 7.9 mg/dL (8.8-10.5); CREATININE 2.65 mg/dL (0.60-1.30); POTASSIUM 3.9 mmol/L (3.5-5.1)
[2020-11-30] MEDS: CefTRIAXone 1 GM/DEXTROSE 50 ML IV SCH (22:55)
[2020-11-30] MEDS ORDERED: CefTRIAXone 1 GM/DEXTROSE 50 ML IV ONE (23:00)
[2020-12-01 02:11] LABS: BASOPHILS % (AUTO) 0.5 % (0.0-2.0); EOSINOPHILS % (AUTO) 0.5 % (1.0-6.0); HEMATOCRIT 38.2 % (36-46); HEMOGLOBIN 11.8 g/dL (12.0-16.0); MEAN CORPUSCULAR HEMOGLOBIN 27.5 pg (26.0-34.0); MEAN CORPUSCULAR HGB CONC 30.8 G/dL (31.0-37.0); MEAN CORPUSCULAR VOLUME 90 fL (80-100); MONOCYTES # (AUTO) 1.1 K/uL (0.1-1.0); MONOCYTES % (AUTO) 5.1 % (2.0-9.0); NEUTROPHILS # (AUTO) 18.5 K/uL (1.8-7.7); PLATELET COUNT (AUTO) 270 K/uL (150-450); RED BLOOD CELL COUNT(AUTO) 4.27 MIL/uL (4.00-5.20); RED CELL DISTRIBUTION WIDTH 15.5 % (11.5-14.5)
[2020-12-01 02:29] LABS: NEUTROPHILS % (AUTO) 88.9 % (40.0-70.0)
[2020-12-01 02:31] LABS: ALBUMIN 2.3 g/dL (3.4-5.0); BILIRUBIN,TOTAL 0.3 mg/dL (0.1-1.0); CALCIUM, TOTAL 8.1 mg/dL (8.8-10.5); CREATININE 2.78 mg/dL (0.60-1.30)
[2020-12-01] MEDS: MORPHINE SULFATE 2 MG/ML SYRINGE IVP PRN (04:40)
[2020-12-01] MEDS: HydrALAZINE HCL 20 MG/ML VIAL IVP PRN (05:19)
[2020-12-01] MEDS: LEVOTHYROXINE SODIUM 75 MCG TABLET PO SCH (05:42)
[2020-12-01] MEDS: NIFEdipine 30 MG ER TABLET PO SCH ×2 (08:29→20:28)
[2020-12-01] MEDS: PANTOPRAZOLE SODIUM 40 MG DR TABLET PO SCH (08:29)
[2020-12-01] MEDS: CHOLECALCIFEROL (VIT D3) 400 UNITS [10 MCG] TABLET PO SCH ×2 (08:29→20:28)
[2020-12-01] MEDS: DOCUSATE SODIUM 100 MG CAPSULE PO SCH ×2 (08:29→20:27)
[2020-12-01 08:31] LABS: CALCIUM, TOTAL 8.1 mg/dL (8.8-10.5); CREATININE 2.95 mg/dL (0.60-1.30); POTASSIUM 4.3 mmol/L (3.5-5.1)
[2020-12-01 09:09] LABS: GLUCOSE,POINT OF CARE 245 MG/DL (70-110)
[2020-12-01] MEDS: INSULIN GLARGINE,HUM.REC.ANLOG 100 UNITS/ML SQ SCH ×2 (09:40→21:19)
[2020-12-01] MEDS: INSULIN LISPRO 100 UNITS/ML SQ PRN ×2 (09:41→21:25)
[2020-12-01] MEDS ORDERED: DEXTROSE 5%-WATER 1,000 ML IV ONE ×2 (12:30→22:00)
[2020-12-01] MEDS ORDERED: HydrALAZINE HCL 20 MG/ML VIAL IVP PRN (12:30)
[2020-12-01 14:26] LABS: CALCIUM, TOTAL 8.1 mg/dL (8.8-10.5); CREATININE 3.13 mg/dL (0.60-1.30); POTASSIUM 3.9 mmol/L (3.5-5.1)
[2020-12-01 18:12] LABS: GLUCOSE,POINT OF CARE 182 MG/DL (70-110)
[2020-12-01] MEDS: ATORVASTATIN CALCIUM 40 MG TABLET PO SCH (20:28)
[2020-12-01 20:59] LABS: CREATININE 3.2 mg/dL (0.60-1.30); POTASSIUM 4.1 mmol/L (3.5-5.1)
[2020-12-01 21:30] LABS: GLUCOSE,POINT OF CARE 207 MG/DL (70-110)
[2020-12-01] MEDS: CefTRIAXone 1 GM/DEXTROSE 50 ML IV SCH (22:51)
[2020-12-02] MEDS: HydrALAZINE HCL 20 MG/ML VIAL IVP PRN ×4 (01:24→20:49)
[2020-12-02 04:24] LABS: BASOPHILS % (AUTO) 0.3 % (0.0-2.0); EOSINOPHILS % (AUTO) 2.6 % (1.0-6.0); HEMATOCRIT 37.6 % (36-46); HEMOGLOBIN 11.3 g/dL (12.0-16.0); LYMPHOCYTES # (AUTO) 1.8 K/uL (1.0-4.8); LYMPHOCYTES % (AUTO) 8.2 % (22.0-44.0); MEAN CORPUSCULAR HEMOGLOBIN 27.1 pg (26.0-34.0); MEAN CORPUSCULAR HGB CONC 30.2 G/dL (31.0-37.0); MEAN CORPUSCULAR VOLUME 90 fL (80-100); MONOCYTES # (AUTO) 1.1 K/uL (0.1-1.0); NEUTROPHILS # (AUTO) 18.4 K/uL (1.8-7.7); NEUTROPHILS % (AUTO) 83.9 % (40.0-70.0); PLATELET COUNT (AUTO) 248 K/uL (150-450); RED BLOOD CELL COUNT(AUTO) 4.19 MIL/uL (4.00-5.20); RED CELL DISTRIBUTION WIDTH 15.8 % (11.5-14.5)
[2020-12-02 04:35] LABS: CALCIUM, TOTAL 7.8 mg/dL (8.8-10.5); CREATININE 3.11 mg/dL (0.60-1.30); MAGNESIUM 3.1 mg/dL (1.80-2.40); POTASSIUM 4.1 mmol/L (3.5-5.1)
[2020-12-02] MEDS: LEVOTHYROXINE SODIUM 75 MCG TABLET PO SCH (06:13)
[2020-12-02] MEDS: CHOLECALCIFEROL (VIT D3) 400 UNITS [10 MCG] TABLET PO SCH ×2 (09:00→21:00)
[2020-12-02] MEDS: DOCUSATE SODIUM 100 MG CAPSULE PO SCH ×2 (09:00→21:00)
[2020-12-02] MEDS: PANTOPRAZOLE SODIUM 40 MG DR TABLET PO SCH (09:00)
[2020-12-02] MEDS: NIFEdipine 30 MG ER TABLET PO SCH ×2 (09:00→21:00)
[2020-12-02 09:25] LABS: GLUCOMETER DEV NAME(LOC) ERT.5; GLUCOSE,POINT OF CARE 238 MG/DL (70-110)
[2020-12-02] MEDS: INSULIN GLARGINE,HUM.REC.ANLOG 100 UNITS/ML SQ SCH ×2 (09:26→22:00)
[2020-12-02] MEDS: INSULIN LISPRO 100 UNITS/ML SQ PRN (09:27)
[2020-12-02] MEDS: DEXTROSE 5%-WATER 1,000 ML IV SCH ×2 (09:57→23:18)
[2020-12-02 19:34] LABS: CALCIUM, TOTAL 7.9 mg/dL (8.8-10.5); CREATININE 2.77 mg/dL (0.60-1.30); MAGNESIUM 3.2 mg/dL (1.80-2.40); PHOSPHORUS 3.9 mg/dL (2.5-4.9)
[2020-12-02] MEDS: ATORVASTATIN CALCIUM 40 MG TABLET PO SCH (21:00)
[2020-12-02 21:18] LABS: GLUCOMETER DEV NAME(LOC) ERT.5; GLUCOSE,POINT OF CARE 238 MG/DL (70-110)
[2020-12-02 21:19] VITALS: BP 127/63
[2020-12-02] MEDS: ETHYL ALCOHOL 62% ANTISEPTIC NASAL INHALANT 0.6 ML AMPUL NASAL SCH (21:53)
[2020-12-02 22:09] LABS: GLUCOSE,POINT OF CARE 233 MG/DL (70-110)
[2020-12-02] MEDS ORDERED: SODIUM CHLORIDE 0.9% 250 ML IV ONE (23:12)
[2020-12-02] MEDS: CefTRIAXone 1 GM/DEXTROSE 50 ML IV SCH (23:43)
[2020-12-03 00:03] VITALS: BP 141/70
[2020-12-03 04:02] VITALS: BP 169/87
[2020-12-03] MEDS: DEXTROSE 5%-WATER 1,000 ML IV SCH ×2 (04:25→14:01)
[2020-12-03] MEDS: HydrALAZINE HCL 20 MG/ML VIAL IVP PRN (04:25)
[2020-12-03] MEDS: INSULIN LISPRO 100 UNITS/ML SQ PRN ×4 (05:44→21:09)
[2020-12-03 06:25] LABS: BASOPHILS % (AUTO) 0.3 % (0.0-2.0); EOSINOPHILS % (AUTO) 1.6 % (1.0-6.0); HEMATOCRIT 36.2 % (36-46); HEMOGLOBIN 11.6 g/dL (12.0-16.0); LYMPHOCYTES # (AUTO) 1.3 K/uL (1.0-4.8); LYMPHOCYTES % (AUTO) 7.3 % (22.0-44.0); MEAN CORPUSCULAR HEMOGLOBIN 28.4 pg (26.0-34.0); MEAN CORPUSCULAR VOLUME 89 fL (80-100); MONOCYTES % (AUTO) 5.3 % (2.0-9.0); NEUTROPHILS # (AUTO) 15.2 K/uL (1.8-7.7); PLATELET COUNT (AUTO) 224 K/uL (150-450); RED BLOOD CELL COUNT(AUTO) 4.08 MIL/uL (4.00-5.20); RED CELL DISTRIBUTION WIDTH 15.9 % (11.5-14.5)
[2020-12-03] MEDS: LEVOTHYROXINE SODIUM 75 MCG TABLET PO SCH (06:30)
[2020-12-03 06:32] LABS: CALCIUM, TOTAL 7.8 mg/dL (8.8-10.5); CREATININE 2.36 mg/dL (0.60-1.30); MAGNESIUM 3.1 mg/dL (1.80-2.40); PHOSPHORUS 4.1 mg/dL (2.5-4.9)
[2020-12-03 06:58] LABS: GLUCOSE,POINT OF CARE 359 MG/DL (70-110)
[2020-12-03 07:32] LABS: NEUTROPHILS % (AUTO) 85.5 % (40.0-70.0)
[2020-12-03 08:00] VITALS: BP 149/78
[2020-12-03] MEDS: DOCUSATE SODIUM 100 MG CAPSULE PO SCH ×2 (08:55→21:03)
[2020-12-03] MEDS: ETHYL ALCOHOL 62% ANTISEPTIC NASAL INHALANT 0.6 ML AMPUL NASAL SCH ×2 (08:56→21:02)
[2020-12-03] MEDS: PANTOPRAZOLE SODIUM 40 MG DR TABLET PO SCH (08:56)
[2020-12-03] MEDS: CHOLECALCIFEROL (VIT D3) 400 UNITS [10 MCG] TABLET PO SCH ×2 (08:56→21:03)
[2020-12-03] MEDS: NIFEdipine 30 MG ER TABLET PO SCH ×2 (08:56→21:02)
[2020-12-03] MEDS: INSULIN GLARGINE,HUM.REC.ANLOG 100 UNITS/ML SQ SCH ×2 (09:01→21:07)
[2020-12-03 10:00] LABS: GLUCOSE,POINT OF CARE 255 MG/DL (70-110)
[2020-12-03 12:00] VITALS: BP 147/70
[2020-12-03 16:00] VITALS: BP 134/69
[2020-12-03 20:00] VITALS: BP 139/74
[2020-12-03] MEDS: ATORVASTATIN CALCIUM 40 MG TABLET PO SCH (21:03)
[2020-12-03] MEDS: CefTRIAXone 1 GM/DEXTROSE 50 ML IV SCH (23:15)
[2020-12-03 23:31] LABS: GLUCOSE,POINT OF CARE 246 MG/DL (70-110)
[2020-12-03 23:31] LABS: GLUCOSE,POINT OF CARE 228 MG/DL (70-110)
[2020-12-04] VITALS: BP 108/58
[2020-12-04] MEDS: DEXTROSE 5%-WATER 1,000 ML IV SCH (01:42)
[2020-12-04 04:00] VITALS: BP 97/54
[2020-12-04 04:57] LABS: BASOPHILS % (AUTO) 0.5 % (0.0-2.0); EOSINOPHILS % (AUTO) 0.7 % (1.0-6.0); HEMATOCRIT 34.6 % (36-46); HEMOGLOBIN 10.9 g/dL (12.0-16.0); LYMPHOCYTES # (AUTO) 0.9 K/uL (1.0-4.8); LYMPHOCYTES % (AUTO) 5.5 % (22.0-44.0); MEAN CORPUSCULAR HEMOGLOBIN 27.5 pg (26.0-34.0); MEAN CORPUSCULAR HGB CONC 31.6 G/dL (31.0-37.0); MEAN CORPUSCULAR VOLUME 87 fL (80-100); MONOCYTES # (AUTO) 0.9 K/uL (0.1-1.0); MONOCYTES % (AUTO) 5.4 % (2.0-9.0); NEUTROPHILS # (AUTO) 15.1 K/uL (1.8-7.7); PLATELET COUNT (AUTO) 225 K/uL (150-450); RED BLOOD CELL COUNT(AUTO) 3.97 MIL/uL (4.00-5.20); RED CELL DISTRIBUTION WIDTH 15.1 % (11.5-14.5)
[2020-12-04 05:12] LABS: CALCIUM, TOTAL 7.4 mg/dL (8.8-10.5); CREATININE 2.26 mg/dL (0.60-1.30); MAGNESIUM 2.6 mg/dL (1.80-2.40); PHOSPHORUS 4.3 mg/dL (2.5-4.9); POTASSIUM 3.7 mmol/L (3.5-5.1)
[2020-12-04 05:14] LABS: NEUTROPHILS % (AUTO) 87.9 % (40.0-70.0)
[2020-12-04] MEDS: LEVOTHYROXINE SODIUM 75 MCG TABLET PO SCH (06:10)
[2020-12-04] MEDS: INSULIN LISPRO 100 UNITS/ML SQ PRN ×2 (06:11→12:36)
[2020-12-04 06:17] LABS: GLUCOSE,POINT OF CARE 279 MG/DL (70-110)
[2020-12-04 08:00] VITALS: BP_SYST 105; BP_SYST 169; BP_DIAS 102; BP_DIAS 56
[2020-12-04] MEDS: NIFEdipine 30 MG ER TABLET PO SCH ×2 (09:00→21:31)
[2020-12-04] MEDS: SODIUM CHLORIDE 0.9% 1,000 ML IV SCH ×2 (09:23→22:35)
[2020-12-04] MEDS: DOCUSATE SODIUM 100 MG CAPSULE PO SCH ×2 (09:23→21:31)
[2020-12-04] MEDS: PANTOPRAZOLE SODIUM 40 MG DR TABLET PO SCH (09:23)
[2020-12-04] MEDS: ETHYL ALCOHOL 62% ANTISEPTIC NASAL INHALANT 0.6 ML AMPUL NASAL SCH ×2 (09:24→21:31)
[2020-12-04] MEDS: CHOLECALCIFEROL (VIT D3) 400 UNITS [10 MCG] TABLET PO SCH ×2 (09:24→21:31)
[2020-12-04] MEDS: INSULIN GLARGINE,HUM.REC.ANLOG 100 UNITS/ML SQ SCH ×2 (09:26→21:00)
[2020-12-04 12:00] VITALS: BP_SYST 118; BP_DIAS 6; BP_DIAS 66
[2020-12-04 16:00] VITALS: BP 126/56
[2020-12-04 20:00] VITALS: BP 132/74
[2020-12-04] MEDS: ATORVASTATIN CALCIUM 40 MG TABLET PO SCH (21:31)
[2020-12-04 22:28] LABS: GLUCOSE,POINT OF CARE 219 MG/DL (70-110)
[2020-12-04 22:29] LABS: GLUCOSE,POINT OF CARE 123 MG/DL (70-110)
[2020-12-04 22:29] LABS: GLUCOSE,POINT OF CARE 156 MG/DL (70-110)
[2020-12-04] MEDS: CefTRIAXone 1 GM/DEXTROSE 50 ML IV SCH (22:35)
[2020-12-05] VITALS (7 sets, daily range): BP systolic 119–164; BP diastolic 67–81
[2020-12-05 01:32] LABS: GLUCOSE,POINT OF CARE 60 MG/DL (70-110)
[2020-12-05 04:51] LABS: BASOPHILS % (AUTO) 0.2 % (0.0-2.0); EOSINOPHILS % (AUTO) 1.3 % (1.0-6.0); HEMATOCRIT 34.8 % (36-46); LYMPHOCYTES # (AUTO) 1.4 K/uL (1.0-4.8); LYMPHOCYTES % (AUTO) 7.7 % (22.0-44.0); MEAN CORPUSCULAR HEMOGLOBIN 27.1 pg (26.0-34.0); MEAN CORPUSCULAR HGB CONC 31.7 G/dL (31.0-37.0); MEAN CORPUSCULAR VOLUME 86 fL (80-100); MONOCYTES # (AUTO) 1.1 K/uL (0.1-1.0); MONOCYTES % (AUTO) 5.9 % (2.0-9.0); NEUTROPHILS # (AUTO) 15.1 K/uL (1.8-7.7); NEUTROPHILS % (AUTO) 84.9 % (40.0-70.0); PLATELET COUNT (AUTO) 233 K/uL (150-450); RED BLOOD CELL COUNT(AUTO) 4.07 MIL/uL (4.00-5.20)
[2020-12-05 04:58] LABS: CALCIUM, TOTAL 7.7 mg/dL (8.8-10.5); CREATININE 1.84 mg/dL (0.60-1.30); POTASSIUM 3.6 mmol/L (3.5-5.1)
[2020-12-05] MEDS: LEVOTHYROXINE SODIUM 75 MCG TABLET PO SCH (06:20)
[2020-12-05 06:26] LABS: GLUCOSE,POINT OF CARE 109 MG/DL (70-110)
[2020-12-05] MEDS: NIFEdipine 30 MG ER TABLET PO SCH ×2 (08:09→21:06)
[2020-12-05] MEDS: CHOLECALCIFEROL (VIT D3) 400 UNITS [10 MCG] TABLET PO SCH ×2 (08:10→21:11)
[2020-12-05] MEDS: PANTOPRAZOLE SODIUM 40 MG DR TABLET PO SCH (08:10)
[2020-12-05] MEDS: DOCUSATE SODIUM 100 MG CAPSULE PO SCH ×2 (08:10→21:06)
[2020-12-05] MEDS: ETHYL ALCOHOL 62% ANTISEPTIC NASAL INHALANT 0.6 ML AMPUL NASAL SCH (08:10)
[2020-12-05] MEDS: INSULIN GLARGINE,HUM.REC.ANLOG 100 UNITS/ML SQ SCH ×3 (08:11→21:26)
[2020-12-05 08:15] LABS: MAGNESIUM 2.7 mg/dL (1.80-2.40); PHOSPHORUS 5.7 mg/dL (2.5-4.9)
[2020-12-05] MEDS ORDERED: VANCOMYCIN HCL 500 MG in DEXTROSE 5%-WATER 100 ML IV ONE (10:15)
[2020-12-05 10:42] LABS: THYROID STIMULATING HORMONE 1.32 uIU/mL (0.36-3.74)
[2020-12-05 10:55] LABS: GLUCOSE,POINT OF CARE 104 MG/DL (70-110)
[2020-12-05] MEDS: SODIUM CHLORIDE 0.9% 1,000 ML IV SCH (13:10)
[2020-12-05 13:33] LABS: GLUCOSE,POINT OF CARE 113 MG/DL (70-110)
[2020-12-05] MEDS: ATORVASTATIN CALCIUM 40 MG TABLET PO SCH (21:06)
[2020-12-05] MEDS: CefTRIAXone 1 GM/DEXTROSE 50 ML IV SCH (23:26)
[2020-12-06] VITALS (8 sets, daily range): BP systolic 127–171; BP diastolic 56–89
[2020-12-06] MEDS: SODIUM CHLORIDE 0.9% 1,000 ML IV SCH (06:00)
[2020-12-06 06:43] LABS: BASOPHILS % (AUTO) 0.1 % (0.0-2.0); EOSINOPHILS % (AUTO) 1.5 % (1.0-6.0); HEMATOCRIT 32.7 % (36-46); HEMOGLOBIN 10.4 g/dL (12.0-16.0); LYMPHOCYTES # (AUTO) 0.9 K/uL (1.0-4.8); LYMPHOCYTES % (AUTO) 6.7 % (22.0-44.0); MEAN CORPUSCULAR HEMOGLOBIN 27.2 pg (26.0-34.0); MEAN CORPUSCULAR HGB CONC 31.9 G/dL (31.0-37.0); MEAN CORPUSCULAR VOLUME 85 fL (80-100); MONOCYTES % (AUTO) 7.4 % (2.0-9.0); NEUTROPHILS # (AUTO) 11.6 K/uL (1.8-7.7); NEUTROPHILS % (AUTO) 84.3 % (40.0-70.0); PLATELET COUNT (AUTO) 258 K/uL (150-450); RED BLOOD CELL COUNT(AUTO) 3.83 MIL/uL (4.00-5.20); RED CELL DISTRIBUTION WIDTH 14.4 % (11.5-14.5)
[2020-12-06 07:02] LABS: CALCIUM, TOTAL 7.8 mg/dL (8.8-10.5); CREATININE 1.4 mg/dL (0.60-1.30); MAGNESIUM 2.8 mg/dL (1.80-2.40); PHOSPHORUS 5.2 mg/dL (2.5-4.9); POTASSIUM 3.9 mmol/L (3.5-5.1)
[2020-12-06] MEDS: ETHYL ALCOHOL 62% ANTISEPTIC NASAL INHALANT 0.6 ML AMPUL NASAL SCH ×2 (07:37→20:03)
[2020-12-06] MEDS: DOCUSATE SODIUM 100 MG CAPSULE PO SCH ×2 (07:39→20:03)
[2020-12-06] MEDS: CHOLECALCIFEROL (VIT D3) 400 UNITS [10 MCG] TABLET PO SCH ×2 (07:39→20:03)
[2020-12-06] MEDS: PANTOPRAZOLE SODIUM 40 MG DR TABLET PO SCH ×2 (07:39→07:46)
[2020-12-06] MEDS: VANCOMYCIN HCL 500 MG in DEXTROSE 5%-WATER 100 ML IV SCH (07:40)
[2020-12-06] MEDS: LEVOTHYROXINE SODIUM 75 MCG TABLET PO SCH (07:40)
[2020-12-06] MEDS: NIFEdipine 30 MG ER TABLET PO SCH ×2 (07:40→20:03)
[2020-12-06] MEDS: INSULIN GLARGINE,HUM.REC.ANLOG 100 UNITS/ML SQ SCH ×2 (07:41→21:00)
[2020-12-06 18:00] LABS: GLUCOMETER DEV NAME(LOC) 5N.1C; GLUCOSE,POINT OF CARE 111 MG/DL (70-110)
[2020-12-06 18:54] LABS: GLUCOMETER DEV NAME(LOC) 5S.1; GLUCOSE,POINT OF CARE 111 MG/DL (70-110)
[2020-12-06 18:54] LABS: GLUCOMETER DEV NAME(LOC) 5S.1; GLUCOSE,POINT OF CARE 110 MG/DL (70-110)
[2020-12-06] MEDS: ATORVASTATIN CALCIUM 40 MG TABLET PO SCH (20:03)
[2020-12-06] MEDS: CefTRIAXone 1 GM/DEXTROSE 50 ML IV SCH (23:39)
[2020-12-07 02:05] LABS: GLUCOMETER DEV NAME(LOC) 5N.1C; GLUCOSE,POINT OF CARE 106 MG/DL (70-110)
[2020-12-07] MEDS ORDERED: CeFAZolin 1 GM/DEXTROSE 50 ML IV ONE (06:00)
[2020-12-07] MEDS: LEVOTHYROXINE SODIUM 75 MCG TABLET PO SCH (06:30)
[2020-12-07 06:42] LABS: GLUCOMETER DEV NAME(LOC) 5S.1; GLUCOSE,POINT OF CARE 131 MG/DL (70-110)
[2020-12-07 08:10] LABS: CALCIUM, TOTAL 7.5 mg/dL (8.8-10.5); CREATININE 1.17 mg/dL (0.60-1.30); INR 0.9 (0.9-1.1)
[2020-12-07 08:11] VITALS: BP 163/82
[2020-12-07 08:19] LABS: MAGNESIUM 2.4 mg/dL (1.80-2.40); PHOSPHORUS 3.7 mg/dL (2.5-4.9)
[2020-12-07] MEDS: VANCOMYCIN HCL 500 MG in DEXTROSE 5%-WATER 100 ML IV SCH (08:24)
[2020-12-07] MEDS: NIFEdipine 30 MG ER TABLET PO SCH ×2 (08:25→20:54)
[2020-12-07] MEDS: CHOLECALCIFEROL (VIT D3) 400 UNITS [10 MCG] TABLET PO SCH ×2 (08:25→20:53)
[2020-12-07] MEDS: INSULIN GLARGINE,HUM.REC.ANLOG 100 UNITS/ML SQ SCH ×2 (08:25→20:58)
[2020-12-07] MEDS: DOCUSATE SODIUM 100 MG CAPSULE PO SCH ×2 (08:25→20:53)
[2020-12-07] MEDS: HydrALAZINE HCL 20 MG/ML VIAL IVP PRN ×2 (08:53→20:51)
[2020-12-07] MEDS: ETHYL ALCOHOL 62% ANTISEPTIC NASAL INHALANT 0.6 ML AMPUL NASAL SCH ×2 (08:53→20:59)
[2020-12-07] MEDS: PANTOPRAZOLE SODIUM 40 MG/VIAL IVP SCH (08:54)
[2020-12-07 11:41] VITALS: BP 127/75
[2020-12-07] MEDS ORDERED: FentaNYL CITRATE PF 100 MCG/2 ML VIAL ONE (13:03)
[2020-12-07] MEDS ORDERED: MIDAZOLAM HCL 5 MG/ML VIAL ONE (13:03)
[2020-12-07] MEDS ORDERED: SODIUM CHLORIDE 0.9% 1,000 ML ONE (13:18)
[2020-12-07 15:58] VITALS: BP 160/74
[2020-12-07] MEDS ORDERED: DEXTROSE 5%-0.45% SODIUM CHL 1,000 ML IV ONE (17:00)
[2020-12-07 17:16] LABS: GLUCOMETER DEV NAME(LOC) 5N.1C; GLUCOSE,POINT OF CARE 99 MG/DL (70-110)
[2020-12-07 20:24] VITALS: BP 163/87
[2020-12-07] MEDS: ATORVASTATIN CALCIUM 40 MG TABLET PO SCH (20:53)
[2020-12-07 21:39] LABS: GLUCOMETER DEV NAME(LOC) 5N.1C; GLUCOSE,POINT OF CARE 92 MG/DL (70-110)
[2020-12-07] MEDS: CefTRIAXone 1 GM/DEXTROSE 50 ML IV SCH (23:03)
[2020-12-07 23:30] VITALS: BP 152/74
[2020-12-08 04:12] LABS: GLUCOMETER DEV NAME(LOC) 5S.1; GLUCOSE,POINT OF CARE 119 MG/DL (70-110)
[2020-12-08 04:12] LABS: GLUCOMETER DEV NAME(LOC) 5N.1C; GLUCOSE,POINT OF CARE 116 MG/DL (70-110)
[2020-12-08 05:23] VITALS: BP 153/80
[2020-12-08] MEDS: LEVOTHYROXINE SODIUM 75 MCG TABLET PO SCH (06:03)
[2020-12-08] MEDS: HydrALAZINE HCL 20 MG/ML VIAL IVP PRN ×2 (06:20→22:20)
[2020-12-08 06:37] LABS: GLUCOMETER DEV NAME(LOC) 5N.3; GLUCOSE,POINT OF CARE 109 MG/DL (70-110)
[2020-12-08 06:37] LABS: GLUCOMETER DEV NAME(LOC) 5N.3; GLUCOSE,POINT OF CARE 109 MG/DL (70-110)
[2020-12-08 07:20] VITALS: BP 149/70
[2020-12-08 07:22] LABS: CALCIUM, TOTAL 7.7 mg/dL (8.8-10.5); CREATININE 1.16 mg/dL (0.60-1.30); MAGNESIUM 2.6 mg/dL (1.80-2.40); PHOSPHORUS 3.1 mg/dL (2.5-4.9); VANCOMYCIN,RANDOM 14.3 mcg/mL (25.0-50.0)
[2020-12-08] MEDS: VANCOMYCIN HCL 750 MG in DEXTROSE 5%-WATER 250 ML IV SCH (08:52)
[2020-12-08] MEDS: CHOLECALCIFEROL (VIT D3) 400 UNITS [10 MCG] TABLET PO SCH ×2 (09:19→20:53)
[2020-12-08] MEDS: PANTOPRAZOLE SODIUM 40 MG/VIAL IVP SCH (09:19)
[2020-12-08] MEDS: ETHYL ALCOHOL 62% ANTISEPTIC NASAL INHALANT 0.6 ML AMPUL NASAL SCH ×2 (09:19→20:49)
[2020-12-08] MEDS: INSULIN GLARGINE,HUM.REC.ANLOG 100 UNITS/ML SQ SCH ×2 (09:36→20:48)
[2020-12-08 10:36] LABS: BASOPHILS % (AUTO) 0.3 % (0.0-2.0); EOSINOPHILS % (AUTO) 0.7 % (1.0-6.0); HEMOGLOBIN 9.5 g/dL (12.0-16.0); LYMPHOCYTES # (AUTO) 1.2 K/uL (1.0-4.8); LYMPHOCYTES % (AUTO) 8.2 % (22.0-44.0); MEAN CORPUSCULAR HEMOGLOBIN 27.4 pg (26.0-34.0); MEAN CORPUSCULAR HGB CONC 31.5 G/dL (31.0-37.0); MEAN CORPUSCULAR VOLUME 87 fL (80-100); MONOCYTES % (AUTO) 7.4 % (2.0-9.0); NEUTROPHILS # (AUTO) 11.8 K/uL (1.8-7.7); NEUTROPHILS % (AUTO) 83.4 % (40.0-70.0); PLATELET COUNT (AUTO) 342 K/uL (150-450); RED BLOOD CELL COUNT(AUTO) 3.45 MIL/uL (4.00-5.20); RED CELL DISTRIBUTION WIDTH 15.5 % (11.5-14.5)
[2020-12-08 11:11] VITALS: BP 158/75
[2020-12-08] MEDS: AmLODIPine BESYLATE 10 MG TABLET PO SCH (12:07)
[2020-12-08] MEDS: FAMOTIDINE 20 MG TABLET PO SCH ×2 (13:00→17:55)
[2020-12-08 14:01] LABS: GLUCOMETER DEV NAME(LOC) 5S.1; GLUCOSE,POINT OF CARE 118 MG/DL (70-110)
[2020-12-08 15:21] VITALS: BP 155/70
[2020-12-08] MEDS: INSULIN LISPRO 100 UNITS/ML SQ PRN (18:53)
[2020-12-08 20:04] VITALS: BP 159/75
[2020-12-08] MEDS: DOCUSATE SODIUM 100 MG/10 ML LIQUID UDCUP PEG SCH (20:49)
[2020-12-08] MEDS: ATORVASTATIN CALCIUM 40 MG TABLET PO SCH (20:49)
[2020-12-08] MEDS: CefTRIAXone 1 GM/DEXTROSE 50 ML IV SCH (22:46)
[2020-12-08] MEDS: MORPHINE SULFATE 2 MG/ML SYRINGE IVP PRN (23:48)
[2020-12-09] VITALS (9 sets, daily range): BP systolic 136–158; BP diastolic 62–85
[2020-12-09] MEDS: INSULIN LISPRO 100 UNITS/ML SQ PRN (00:05)
[2020-12-09 00:11] LABS: GLUCOMETER DEV NAME(LOC) 5S.1; GLUCOSE,POINT OF CARE 136 MG/DL (70-110)
[2020-12-09 00:11] LABS: GLUCOMETER DEV NAME(LOC) 5S.1; GLUCOSE,POINT OF CARE 144 MG/DL (70-110)
[2020-12-09 00:12] LABS: GLUCOMETER DEV NAME(LOC) 5N.1C; GLUCOSE,POINT OF CARE 173 MG/DL (70-110)
[2020-12-09] MEDS: LEVOTHYROXINE SODIUM 75 MCG TABLET PO SCH (06:34)
[2020-12-09 07:03] LABS: GLUCOMETER DEV NAME(LOC) 5S.1; GLUCOSE,POINT OF CARE 144 MG/DL (70-110)
[2020-12-09 07:51] LABS: CREATININE 1.26 mg/dL (0.60-1.30); POTASSIUM 4.2 mmol/L (3.5-5.1)
[2020-12-09 07:52] LABS: MAGNESIUM 2.7 mg/dL (1.80-2.40); PHOSPHORUS 3.2 mg/dL (2.5-4.9)
[2020-12-09] MEDS: VANCOMYCIN HCL 750 MG in DEXTROSE 5%-WATER 250 ML IV SCH (09:01)
[2020-12-09] MEDS: ETHYL ALCOHOL 62% ANTISEPTIC NASAL INHALANT 0.6 ML AMPUL NASAL SCH ×2 (09:25→21:33)
[2020-12-09] MEDS: DOCUSATE SODIUM 100 MG/10 ML LIQUID UDCUP PEG SCH ×2 (09:25→21:33)
[2020-12-09] MEDS: CHOLECALCIFEROL (VIT D3) 400 UNITS [10 MCG] TABLET PO SCH ×2 (09:26→21:33)
[2020-12-09] MEDS: AmLODIPine BESYLATE 10 MG TABLET PO SCH (09:26)
[2020-12-09] MEDS: FAMOTIDINE 20 MG TABLET PO SCH (09:26)
[2020-12-09] MEDS: INSULIN GLARGINE,HUM.REC.ANLOG 100 UNITS/ML SQ SCH ×2 (09:27→21:35)
[2020-12-09 09:31] LABS: GLUCOMETER DEV NAME(LOC) 5N.1C; GLUCOSE,POINT OF CARE 98 MG/DL (70-110)
[2020-12-09 13:20] LABS: BASOPHILS % (AUTO) 0.9 % (0.0-2.0); EOSINOPHILS % (AUTO) 0.3 % (1.0-6.0); HEMATOCRIT 30.1 % (36-46); HEMOGLOBIN 9.5 g/dL (12.0-16.0); LYMPHOCYTES # (AUTO) 0.9 K/uL (1.0-4.8); MEAN CORPUSCULAR HEMOGLOBIN 27.7 pg (26.0-34.0); MEAN CORPUSCULAR HGB CONC 31.6 G/dL (31.0-37.0); MEAN CORPUSCULAR VOLUME 87 fL (80-100); MONOCYTES # (AUTO) 1.3 K/uL (0.1-1.0); MONOCYTES % (AUTO) 6.1 % (2.0-9.0); NEUTROPHILS # (AUTO) 19.2 K/uL (1.8-7.7); NEUTROPHILS % (AUTO) 88.7 % (40.0-70.0); PLATELET COUNT (AUTO) 376 K/uL (150-450); RED BLOOD CELL COUNT(AUTO) 3.44 MIL/uL (4.00-5.20); RED CELL DISTRIBUTION WIDTH 15.7 % (11.5-14.5)
[2020-12-09 17:03] LABS: GLUCOMETER DEV NAME(LOC) 5S.1; GLUCOSE,POINT OF CARE 131 MG/DL (70-110)
[2020-12-09 17:03] LABS: GLUCOMETER DEV NAME(LOC) 5S.1; GLUCOSE,POINT OF CARE 138 MG/DL (70-110)
[2020-12-09 18:17] LABS: GLUCOMETER DEV NAME(LOC) 5N.1C; GLUCOSE,POINT OF CARE 132 MG/DL (70-110)
[2020-12-09] MEDS: ATORVASTATIN CALCIUM 40 MG TABLET PO SCH (21:33)
[2020-12-09 21:53] LABS: GLUCOMETER DEV NAME(LOC) 5S.1; GLUCOSE,POINT OF CARE 138 MG/DL (70-110)
[2020-12-09] MEDS: CefTRIAXone 1 GM/DEXTROSE 50 ML IV SCH (23:35)
[2020-12-10] MEDS: INSULIN LISPRO 100 UNITS/ML SQ PRN (00:56)
[2020-12-10 02:15] LABS: GLUCOMETER DEV NAME(LOC) 5S.1; GLUCOSE,POINT OF CARE 147 MG/DL (70-110)
[2020-12-10 03:39] VITALS: BP 155/85
[2020-12-10 05:55] LABS: BASOPHILS % (AUTO) 0.2 % (0.0-2.0); HEMATOCRIT 28.7 % (36-46); HEMOGLOBIN 9.1 g/dL (12.0-16.0); LYMPHOCYTES # (AUTO) 1.2 K/uL (1.0-4.8); LYMPHOCYTES % (AUTO) 5.1 % (22.0-44.0); MEAN CORPUSCULAR HEMOGLOBIN 27.1 pg (26.0-34.0); MEAN CORPUSCULAR HGB CONC 31.7 G/dL (31.0-37.0); MEAN CORPUSCULAR VOLUME 86 fL (80-100); MONOCYTES # (AUTO) 1.3 K/uL (0.1-1.0); MONOCYTES % (AUTO) 5.5 % (2.0-9.0); NEUTROPHILS # (AUTO) 20.6 K/uL (1.8-7.7); PLATELET COUNT (AUTO) 372 K/uL (150-450); RED BLOOD CELL COUNT(AUTO) 3.34 MIL/uL (4.00-5.20)
[2020-12-10] MEDS: LEVOTHYROXINE SODIUM 75 MCG TABLET PO SCH (06:17)
[2020-12-10 06:36] LABS: GLUCOMETER DEV NAME(LOC) 5N.3; GLUCOSE,POINT OF CARE 96 MG/DL (70-110)
[2020-12-10 06:39] LABS: CALCIUM, TOTAL 7.8 mg/dL (8.8-10.5); CREATININE 1.13 mg/dL (0.60-1.30); MAGNESIUM 2.6 mg/dL (1.80-2.40); PHOSPHORUS 3.8 mg/dL (2.5-4.9); POTASSIUM 4.4 mmol/L (3.5-5.1); VANCOMYCIN,RANDOM 23.9 mcg/mL (25.0-50.0)
[2020-12-10 07:03] LABS: NEUTROPHILS % (AUTO) 88.2 % (40.0-70.0)
[2020-12-10 08:14] VITALS: BP 152/76
[2020-12-10] MEDS: DOCUSATE SODIUM 100 MG/10 ML LIQUID UDCUP PEG SCH ×2 (08:55→20:33)
[2020-12-10] MEDS: AmLODIPine BESYLATE 10 MG TABLET PO SCH (08:55)
[2020-12-10] MEDS: CHOLECALCIFEROL (VIT D3) 400 UNITS [10 MCG] TABLET PO SCH ×2 (08:55→20:33)
[2020-12-10] MEDS: FAMOTIDINE 20 MG TABLET PO SCH (08:55)
[2020-12-10] MEDS: ETHYL ALCOHOL 62% ANTISEPTIC NASAL INHALANT 0.6 ML AMPUL NASAL SCH ×2 (08:55→20:35)
[2020-12-10] MEDS: INSULIN GLARGINE,HUM.REC.ANLOG 100 UNITS/ML SQ SCH ×2 (09:00→20:34)
[2020-12-10 12:04] VITALS: BP 155/68
[2020-12-10 12:04] LABS: GLUCOMETER DEV NAME(LOC) 5S.1; GLUCOSE,POINT OF CARE 109 MG/DL (70-110)
[2020-12-10 14:44] LABS: GLUCOMETER DEV NAME(LOC) 5N.1C; GLUCOSE,POINT OF CARE 85 MG/DL (70-110)
[2020-12-10 15:30] VITALS: BP 149/68
[2020-12-10 17:24] LABS: APPEARANCE,URINE CLOUDY (CLEAR); BILIRUBIN,URINE NEGATIVE (NEGATIVE); GLUCOSE, URINE (UA) NEGATIVE (NEGATIVE); KETONES,URINE NEGATIVE (NEGATIVE); LEUKOCYTE ESTERASE ,URINE NEGATIVE (NEGATIVE); NITRATE,URINE NEGATIVE (NEGATIVE); OCCULT BLOOD,URINE LARGE (NEGATIVE); PROTEIN,URINE SEE CONFIRM (NEGATIVE); UROBILINOGEN,URINE 0.2 mg/dL (<=1.0)
[2020-12-10 18:12] LABS: SQUAMOUS EPITHELIAL CELL,UR Many /LPF (None Seen); SULFOSALICYLIC ACID,URINE 4+ (Negative)
[2020-12-10 18:14] LABS: YEAST,URINE Moderate /HPF (None Seen)
[2020-12-10 18:15] LABS: BACTERIA,URINE Few /HPF (None Seen)
[2020-12-10 20:07] VITALS: BP 196/63
[2020-12-10] MEDS: ATORVASTATIN CALCIUM 40 MG TABLET PO SCH (20:33)
[2020-12-10 21:25] LABS: GLUCOMETER DEV NAME(LOC) 5N.1C; GLUCOSE,POINT OF CARE 109 MG/DL (70-110)
[2020-12-10 21:25] LABS: GLUCOMETER DEV NAME(LOC) 5N.1C; GLUCOSE,POINT OF CARE 100 MG/DL (70-110)
[2020-12-10 23:17] VITALS: BP 148/71
[2020-12-11] MEDS: AMPICILLIN SODIUM/SULBACTAM NA 3 GM in SODIUM CHLORIDE 0.9% 100 ML IV SCH ×5 (00:45→23:40)
[2020-12-11 05:08] VITALS: BP 154/75
[2020-12-11 05:45] LABS: GLUCOMETER DEV NAME(LOC) 5N.1C; GLUCOSE,POINT OF CARE 111 MG/DL (70-110)
[2020-12-11 06:16] LABS: GLUCOMETER DEV NAME(LOC) 5N.1C; GLUCOSE,POINT OF CARE 114 MG/DL (70-110)
[2020-12-11] MEDS: LEVOTHYROXINE SODIUM 75 MCG TABLET PO SCH (06:23)
[2020-12-11 06:43] LABS: % IRON SATURATION 16.6 % (22-44)
[2020-12-11 07:34] VITALS: BP 146/77
[2020-12-11] MEDS: ETHYL ALCOHOL 62% ANTISEPTIC NASAL INHALANT 0.6 ML AMPUL NASAL SCH ×2 (07:58→20:05)
[2020-12-11] MEDS: CHOLECALCIFEROL (VIT D3) 400 UNITS [10 MCG] TABLET PO SCH ×2 (07:59→20:05)
[2020-12-11] MEDS: DOCUSATE SODIUM 100 MG/10 ML LIQUID UDCUP PEG SCH ×2 (07:59→20:05)
[2020-12-11] MEDS: AmLODIPine BESYLATE 10 MG TABLET PO SCH (07:59)
[2020-12-11] MEDS: FAMOTIDINE 20 MG TABLET PO SCH (07:59)
[2020-12-11] MEDS ORDERED: VANCOMYCIN HCL 500 MG in DEXTROSE 5%-WATER 100 ML IV SCH (08:00)
[2020-12-11] MEDS: INSULIN GLARGINE,HUM.REC.ANLOG 100 UNITS/ML SQ SCH ×2 (08:09→21:00)
[2020-12-11 11:09] VITALS: BP 158/85
[2020-12-11 11:43] LABS: COVID AG,FIA SOURCE NASOPHARYNGEAL
[2020-12-11] MEDS: APIXABAN 5 MG TABLET PO SCH ×2 (15:00→20:05)
[2020-12-11] MEDS: METOCLOPRAMIDE HCL 5 MG TABLET PEG SCH ×2 (15:14→23:40)
[2020-12-11 16:31] VITALS: BP 159/75
[2020-12-11 18:12] LABS: GLUCOMETER DEV NAME(LOC) 5N.3; GLUCOSE,POINT OF CARE 86 MG/DL (70-110)
[2020-12-11 18:12] LABS: GLUCOMETER DEV NAME(LOC) 5N.3; GLUCOSE,POINT OF CARE 93 MG/DL (70-110)
[2020-12-11 19:37] VITALS: BP 163/77
[2020-12-11] MEDS: ATORVASTATIN CALCIUM 40 MG TABLET PO SCH (20:05)
[2020-12-11] MEDS: HydrALAZINE HCL 20 MG/ML VIAL IVP PRN (20:05)
[2020-12-11 21:16] LABS: GLUCOMETER DEV NAME(LOC) 5N.1C; GLUCOSE,POINT OF CARE 98 MG/DL (70-110)
[2020-12-11 23:19] VITALS: BP 138/64
[2020-12-12 04:29] VITALS: BP 152/70
[2020-12-12 05:02] LABS: GLUCOMETER DEV NAME(LOC) 5S.1; GLUCOSE,POINT OF CARE 112 MG/DL (70-110)
[2020-12-12] MEDS: AMPICILLIN SODIUM/SULBACTAM NA 3 GM in SODIUM CHLORIDE 0.9% 100 ML IV SCH ×2 (05:59→12:11)
[2020-12-12] MEDS: LEVOTHYROXINE SODIUM 75 MCG TABLET PO SCH (06:01)
[2020-12-12 07:01] LABS: BASOPHILS % (AUTO) 0.4 % (0.0-2.0); HEMATOCRIT 24.7 % (36-46); HEMOGLOBIN 8.2 g/dL (12.0-16.0); LYMPHOCYTES % (AUTO) 6.2 % (22.0-44.0); MEAN CORPUSCULAR HEMOGLOBIN 28.4 pg (26.0-34.0); MEAN CORPUSCULAR HGB CONC 33.3 G/dL (31.0-37.0); MEAN CORPUSCULAR VOLUME 85 fL (80-100); MONOCYTES # (AUTO) 1.2 K/uL (0.1-1.0); MONOCYTES % (AUTO) 7.2 % (2.0-9.0); NEUTROPHILS # (AUTO) 14.1 K/uL (1.8-7.7); PLATELET COUNT (AUTO) 415 K/uL (150-450); RED CELL DISTRIBUTION WIDTH 15.1 % (11.5-14.5)
[2020-12-12 07:08] LABS: NEUTROPHILS % (AUTO) 85.2 % (40.0-70.0)
[2020-12-12 07:21] LABS: ALBUMIN 1.1 g/dL (3.4-5.0); BILIRUBIN,TOTAL 0.1 mg/dL (0.1-1.0); CALCIUM, TOTAL 7.7 mg/dL (8.8-10.5); CREATININE 1.09 mg/dL (0.60-1.30); POTASSIUM 4.6 mmol/L (3.5-5.1); TOTAL PROTEIN, SERUM 5.7 g/dL (6.4-8.2)
[2020-12-12 07:54] VITALS: BP 126/87
[2020-12-12] MEDS: METOCLOPRAMIDE HCL 5 MG TABLET PEG SCH (08:46)
[2020-12-12] MEDS: CHOLECALCIFEROL (VIT D3) 400 UNITS [10 MCG] TABLET PO SCH (08:46)
[2020-12-12] MEDS: APIXABAN 5 MG TABLET PO SCH (08:46)
[2020-12-12] MEDS: INSULIN GLARGINE,HUM.REC.ANLOG 100 UNITS/ML SQ SCH (08:46)
[2020-12-12] MEDS: FAMOTIDINE 20 MG TABLET PO SCH (08:46)
[2020-12-12] MEDS: AmLODIPine BESYLATE 10 MG TABLET PO SCH (08:46)
[2020-12-12] MEDS: ETHYL ALCOHOL 62% ANTISEPTIC NASAL INHALANT 0.6 ML AMPUL NASAL SCH (08:46)
[2020-12-12] MEDS: DOCUSATE SODIUM 100 MG/10 ML LIQUID UDCUP PEG SCH (08:46)
[2020-12-12] MEDS: INSULIN LISPRO 100 UNITS/ML SQ PRN (12:11)
[2020-12-12 12:42] VITALS: BP 112/73
[2020-12-12 13:43] LABS: GLUCOMETER DEV NAME(LOC) 5N.3; GLUCOSE,POINT OF CARE 141 MG/DL (70-110)
[2020-12-12 13:43] LABS: GLUCOMETER DEV NAME(LOC) 5N.1C; GLUCOSE,POINT OF CARE 175 MG/DL (70-110)
[2020-12-14] MEDS ORDERED: APIX5TAB PO (15:34)
[2020-12-14] MEDS ORDERED: ASPI-1444 PO (15:46)
[2020-12-14] MEDS ORDERED: CARV25TA32 PO (16:33)
[2020-12-14] MEDS ORDERED: AMLO5TAB66 PO (16:33)
[2020-12-14] MEDS ORDERED: LEVO50 PO (16:33)
[2020-12-14] MEDS ORDERED: SPIR-37 PO (16:33)
[2020-12-21] MEDS ORDERED: AMLO5TAB66 PO (11:09)
[2020-12-21] MEDS ORDERED: AUD NEB (11:09)
[2020-12-21] MEDS ORDERED: CEFX2I IM (11:17)
[2020-12-21] MEDS ORDERED: CEFX2I IV (11:20)
[2020-12-21] MEDS ORDERED: FLUC200T85 PEG (11:21)
[2020-12-21] MEDS ORDERED: MULT15TA3 PEG (11:32)
[2020-12-21] MEDS ORDERED: PANT-31 PEG (11:33)
[2020-12-21] MEDS ORDERED: ACET-3207 PO (11:33)
[2020-12-21] MEDS ORDERED: MOM30 PEG (11:34)
== END 2020-12-12 15:00 | DRG 45 ==
LOC: EMS 09:32 → ICU 12-02 18:15 → 5S 12-05 15:00
PROVIDERS: ADMIT Internal Medicine; ATTEND Internal Medicine
PROC: 0DH63UZ Insertion of Feeding Device into Stomach, Percutaneous Approach (ICD-10-PCS; principal; 2020-12-07 17:00)
DX: I63.512 Cerebral infarction due to unspecified occlusion or stenosis of left middle cerebral artery (principal); N17.0 Acute kidney failure with tubular necrosis; G93.41 Metabolic encephalopathy; E44.0 Moderate protein-calorie malnutrition; R65.10 Systemic inflammatory response syndrome (SIRS) of non-infectious origin without acute organ dysfunction; E87.0 Hyperosmolality and hypernatremia; I82.401 Acute embolism and thrombosis of unspecified deep veins of right lower extremity; G81.91 Hemiplegia, unspecified affecting right dominant side; E11.22 Type 2 diabetes mellitus with diabetic chronic kidney disease; R47.01 Aphasia; N17.9 Acute kidney failure, unspecified; B95.2 Enterococcus as the cause of diseases classified elsewhere; E11.65 Type 2 diabetes mellitus with hyperglycemia; N39.0 Urinary tract infection, site not specified; N18.9 Chronic kidney disease, unspecified; D64.9 Anemia, unspecified; E03.9 Hypothyroidism, unspecified; E78.5 Hyperlipidemia, unspecified; F32.A Depression, unspecified; I12.9 Hypertensive chronic kidney disease with stage 1 through stage 4 chronic kidney disease, or unspecified chronic kidney disease; J32.0 Chronic maxillary sinusitis; J45.909 Unspecified asthma, uncomplicated; R13.10 Dysphagia, unspecified; Z20.822 Contact with and (suspected) exposure to COVID-19; B96.4 Proteus (mirabilis) (morganii) as the cause of diseases classified elsewhere; Z79.01 Long term (current) use of anticoagulants; Z79.4 Long term (current) use of insulin; Z79.899 Other long term (current) drug therapy; Z68.23 Body mass index [BMI] 23.0-23.9, adult
CPT/HCPCS: 70450; 70551; 71045; 80048; 80053; 80202; 81001; 81002; 82009; 82140; 82550; 82728; 82962; 83540; 83550; 83735; 83880; 84100; 84443; 84484; 85025; 85610; 85730; 87040; 87077; 87081; 87086; 87186; 92526; 92610; 93005; 93306; 93970; 97162; 97163; 97167; 99291; C9113; G0378; J0295; J0360; J0690; J0696; J1815; J2250; J2270; J2405; J3010; J3370; J7030; J7050; J7060; J7131; 36415-L1; 36415-TC

== ENCOUNTER 2021-01-13 13:26 | Inpatient (IN) | payer OTHER ==
[~2021-01-13] VITALS: Ht 157.5 cm; Wt 56.7 kg
[~2021-01-13 13:26] MED LIST changes: +ACET-3207 PO; +AMLO5TAB66 PO; +APIX5TAB PO; +ASPI-1444 PO; -ASPI-1450 PO; -ATOR-2 PO; +CARV25TA32 PO; +CEFX2I IM; +CEFX2I IV; +FLUC200T85 PEG; +LEVO50 PO; -LEVO75 PO; -METO-558 PO; +MOM30 PEG; +MULT15TA3 PEG; -NIFE30TA5 PO; +PANT-31 PEG; +SPIR-37 PO
[2021-01-13] MEDS ORDERED: ACETAMINOPHEN 1000 MG/ISO-OSM 100 ML IV ONE (14:30)
[2021-01-13] MEDS ORDERED: SODIUM CHLORIDE 0.9% 1,700 ML IV ONE (14:30)
[2021-01-13] MEDS ORDERED: LORazepam 2 MG/ML VIAL IVP ONE (14:30)
[2021-01-13 15:05] LABS: BASOPHILS % (AUTO) 0.4 % (0.0-2.0); EOSINOPHILS % (AUTO) 1.2 % (1.0-6.0); HEMATOCRIT 23.6 % (36-46); HEMOGLOBIN 7.6 g/dL (12.0-16.0); LYMPHOCYTES # (AUTO) 1.6 K/uL (1.0-4.8); LYMPHOCYTES % (AUTO) 6.7 % (22.0-44.0); MEAN CORPUSCULAR HEMOGLOBIN 29.3 pg (26.0-34.0); MEAN CORPUSCULAR HGB CONC 32.2 G/dL (31.0-37.0); MEAN CORPUSCULAR VOLUME 91 fL (80-100); MONOCYTES # (AUTO) 1.7 K/uL (0.1-1.0); MONOCYTES % (AUTO) 7.2 % (2.0-9.0); NEUTROPHILS # (AUTO) 20.2 K/uL (1.8-7.7); NEUTROPHILS % (AUTO) 84.5 % (40.0-70.0); PLATELET COUNT (AUTO) 578 K/uL (150-450); RED CELL DISTRIBUTION WIDTH 16.2 % (11.5-14.5)
[2021-01-13 15:18] LABS: COVID AG,FIA SOURCE NASOPHARYNGEAL
[2021-01-13 15:21] LABS: INR 1.1 (0.9-1.1); PROTHROMBIN TIME 11.3 SEC (9.4-11.6)
[2021-01-13 15:23] LABS: CALCIUM, TOTAL 8.3 mg/dL (8.8-10.5); CREATININE 1.27 mg/dL (0.60-1.30); POTASSIUM 4.6 mmol/L (3.5-5.1)
[2021-01-13 15:33] LABS: LACTIC ACID 1.8 mmol/L (0.4-2.0)
[2021-01-13 15:45] LABS: APPEARANCE,URINE CLEAR (CLEAR); BILIRUBIN,URINE NEGATIVE (NEGATIVE); GLUCOSE, URINE (UA) 100 mg/dL (NEGATIVE); KETONES,URINE NEGATIVE (NEGATIVE); LEUKOCYTE ESTERASE ,URINE NEGATIVE (NEGATIVE); NITRATE,URINE NEGATIVE (NEGATIVE); OCCULT BLOOD,URINE MODERATE (NEGATIVE); PROTEIN,URINE SEE CONFIRM (NEGATIVE)
[2021-01-13 15:46] LABS: ALBUMIN 1.5 g/dL (3.4-5.0); BILIRUBIN,TOTAL 0.2 mg/dL (0.1-1.0); TOTAL PROTEIN, SERUM 7.4 g/dL (6.4-8.2)
[2021-01-13 15:53] LABS: INFLUENZA TYPE A NEGATIVE FOR TYPE A (NEGATIVE); INFLUENZA TYPE B NEGATIVE FOR TYPE B (NEGATIVE)
[2021-01-13 15:56] LABS: AMPHET/METH SCREEN,URINE NEGATIVE (NEGATIVE); BARBITURATE SCREEN, URINE NEGATIVE (NEGATIVE); BENZODIAZEPINES SCREEN,URINE NEGATIVE (NEGATIVE); CANNABINOID SCREEN,URINE NEGATIVE (NEGATIVE); COCAINE SCREEN,URINE NEGATIVE (NEGATIVE); METHADONE SCREEN, URINE NEGATIVE (NEGATIVE); OPIATE SCREEN,URINE NEGATIVE (NEGATIVE)
[2021-01-13 15:58] LABS: PHENCYCLIDINE SCREEN,URINE NEGATIVE (NEGATIVE)
[2021-01-13] MEDS ORDERED: CefTRIAXone SODIUM 2 GM in DEXTROSE 5%-WATER 50 ML IV ONE (16:00)
[2021-01-13 16:31] LABS: BACTERIA,URINE None Seen /HPF (None Seen); RBC,URINE None Seen /HPF (0-2); SULFOSALICYLIC ACID,URINE 3+ (Negative); WBC,URINE 0-2 /HPF (0-5)
[2021-01-13 16:32] LABS: SQUAMOUS EPITHELIAL CELL,UR Few /LPF (None Seen); YEAST,URINE Many /HPF (None Seen)
[2021-01-13 16:42] LABS: FREE T4 (FREE THYROXINE) 0.88 ng/dL (0.76-1.46); THYROID STIMULATING HORMONE 12.67 uIU/mL (0.36-3.74)
[2021-01-13] MEDS ORDERED: PIPERACILLIN/TAZO 3.375 GM/D5W 50 ML IV ONE (16:45)
[2021-01-13] MEDS ORDERED: 0.9% SODIUM CHLORIDE 10 ML SYRINGE IVP PRN (17:30)
[2021-01-13 18:26] VITALS: BP 150/73
[2021-01-13 19:50] VITALS: BP 136/60
[2021-01-13] MEDS ORDERED: HYDROCODONE/ACETAMINOPHEN 5-325 MG TABLET PO PRN (22:00)
[2021-01-13] MEDS ORDERED: MORPHINE SULFATE 2 MG/ML SYRINGE IVP PRN (22:00)
[2021-01-13] MEDS ORDERED: ONDANSETRON HCL 4 MG/2 ML VIAL IVP PRN (22:00)
[2021-01-13] MEDS ORDERED: ACETAMINOPHEN 325 MG TABLET PO PRN (22:00)
[2021-01-13] MEDS ORDERED: ZOLPIDEM TARTRATE 5 MG TABLET PO PRN (22:00)
[2021-01-13] MEDS ORDERED: BISACODYL 10 MG RECTAL RECTAL SUPPOSITORY PR PRN (22:00)
[2021-01-13] MEDS ORDERED: MAGNESIUM HYDROXIDE SUSPENSION 30 ML UDCUP PO PRN (22:00)
[2021-01-13] MEDS ORDERED: SODIUM CHLORIDE 0.9% 250 ML IV ONE (22:49)
[2021-01-13] MEDS: LevETIRAcetam 750 MG in DEXTROSE 5%-WATER 100 ML IV SCH (22:51)
[2021-01-13] MEDS ORDERED: VANCOMYCIN HCL 1 GM/D5% WATER 200 ML IV ONE (23:00)
[2021-01-14] VITALS (7 sets, daily range): BP systolic 113–145; BP diastolic 52–74
[2021-01-14] MEDS ORDERED: HEPARIN SODIUM,PORCINE 5,000 UNITS/ML VIAL SQ SCH
[2021-01-14] MEDS: PIPERACILLIN/TAZO 3.375 GM/D5W 50 ML IV SCH ×5 (01:33→23:13)
[2021-01-14 01:43] LABS: GLUCOMETER DEV NAME(LOC) 5N.1C; GLUCOSE,POINT OF CARE 148 MG/DL (70-110)
[2021-01-14] MEDS: LORazepam 2 MG/ML VIAL IVP PRN ×2 (04:52→17:58)
[2021-01-14 06:00] LABS: BASOPHILS % (AUTO) 0.6 % (0.0-2.0); HEMATOCRIT 22.1 % (36-46); LYMPHOCYTES # (AUTO) 1.7 K/uL (1.0-4.8); LYMPHOCYTES % (AUTO) 8.4 % (22.0-44.0); MEAN CORPUSCULAR HEMOGLOBIN 29.3 pg (26.0-34.0); MEAN CORPUSCULAR HGB CONC 31.6 G/dL (31.0-37.0); MEAN CORPUSCULAR VOLUME 93 fL (80-100); MONOCYTES # (AUTO) 1.6 K/uL (0.1-1.0); MONOCYTES % (AUTO) 7.8 % (2.0-9.0); NEUTROPHILS # (AUTO) 16.4 K/uL (1.8-7.7); NEUTROPHILS % (AUTO) 80.2 % (40.0-70.0); PLATELET COUNT (AUTO) 512 K/uL (150-450); RED BLOOD CELL COUNT(AUTO) 2.38 MIL/uL (4.00-5.20); RED CELL DISTRIBUTION WIDTH 15.9 % (11.5-14.5)
[2021-01-14 06:10] LABS: CALCIUM, TOTAL 8.2 mg/dL (8.8-10.5); CREATININE 1.19 mg/dL (0.60-1.30); POTASSIUM 4.2 mmol/L (3.5-5.1)
[2021-01-14] MEDS ORDERED: LEVOTHYROXINE SODIUM 50 MCG TABLET PO SCH (06:30)
[2021-01-14] MEDS ORDERED: SPIRONOLACTONE 25 MG TABLET PO SCH (09:00)
[2021-01-14] MEDS ORDERED: DOCUSATE SODIUM 100 MG CAPSULE PO SCH (09:00)
[2021-01-14] MEDS ORDERED: PANTOPRAZOLE SODIUM 40 MG DR TABLET PO SCH (09:00)
[2021-01-14] MEDS ORDERED: ASPIRIN 81 MG DR TABLET PO SCH (09:00)
[2021-01-14] MEDS ORDERED: CARVEDILOL 25 MG TABLET PO SCH (09:00)
[2021-01-14] MEDS ORDERED: LISINOPRIL 20 MG TABLET PO SCH (09:00)
[2021-01-14] MEDS ORDERED: AmLODIPine BESYLATE 5 MG TABLET PO SCH (09:00)
[2021-01-14] MEDS: VANCOMYCIN HCL 1 GM/D5% WATER 200 ML IV SCH (09:55)
[2021-01-14] MEDS ORDERED: DEXTROSE 50%-WATER 25 GM/50 ML SYRINGE IVP PRN (11:30)
[2021-01-14] MEDS ORDERED: MAGNESIUM HYDROXIDE SUSPENSION 30 ML UDCUP GT PRN (12:00)
[2021-01-14] MEDS: LevETIRAcetam 750 MG in DEXTROSE 5%-WATER 100 ML IV SCH ×2 (12:03→22:47)
[2021-01-14 12:31] LABS: GLUCOMETER DEV NAME(LOC) 5N.1C; GLUCOSE,POINT OF CARE 203 MG/DL (70-110)
[2021-01-14] MEDS ORDERED: HYDROCODONE/ACETAMINOPHEN 5-325 MG TABLET GT PRN (14:00)
[2021-01-14] MEDS ORDERED: ACETAMINOPHEN 325 MG TABLET GT PRN (14:00)
[2021-01-14] MEDS: PANTOPRAZOLE SODIUM 40 MG/VIAL IVP SCH (14:38)
[2021-01-14] MEDS: ASPIRIN 81 MG CHEWABLE TABLET GT SCH (14:38)
[2021-01-14] MEDS: INSULIN REGULAR, HUMAN 100 UNITS/ML SQ PRN ×2 (17:57→23:44)
[2021-01-14] MEDS: CARVEDILOL 25 MG TABLET GT SCH (20:19)
[2021-01-14] MEDS: SPIRONOLACTONE 25 MG TABLET GT SCH (20:19)
[2021-01-14] MEDS: ATORVASTATIN CALCIUM 40 MG TABLET GT SCH (20:20)
[2021-01-14 20:48] LABS: GLUCOMETER DEV NAME(LOC) 5N.1C; GLUCOSE,POINT OF CARE 206 MG/DL (70-110)
[2021-01-14] MEDS: DOCUSATE SODIUM 100 MG/10 ML LIQUID UDCUP GT SCH (21:00)
[2021-01-14] MEDS ORDERED: ATORVASTATIN CALCIUM 40 MG TABLET PO SCH (21:00)
[2021-01-14] MEDS ORDERED: LORazepam 2 MG/ML VIAL IVP ONE (21:15)
[2021-01-15] VITALS (11 sets, daily range): BP systolic 105–161; BP diastolic 49–95
[2021-01-15] MEDS: PIPERACILLIN/TAZO 3.375 GM/D5W 50 ML IV SCH ×2 (05:06→12:29)
[2021-01-15] MEDS: LEVOTHYROXINE SODIUM 50 MCG TABLET GT SCH (05:06)
[2021-01-15] MEDS: INSULIN REGULAR, HUMAN 100 UNITS/ML SQ PRN ×2 (05:25→17:12)
[2021-01-15 06:36] LABS: CREATININE 1.26 mg/dL (0.60-1.30)
[2021-01-15 07:16] LABS: BASOPHILS % (AUTO) 0.5 % (0.0-2.0); EOSINOPHILS % (AUTO) 2.9 % (1.0-6.0); HEMATOCRIT 21.6 % (36-46); LYMPHOCYTES # (AUTO) 1.6 K/uL (1.0-4.8); LYMPHOCYTES % (AUTO) 7.8 % (22.0-44.0); MEAN CORPUSCULAR HEMOGLOBIN 28.9 pg (26.0-34.0); MEAN CORPUSCULAR HGB CONC 31.3 G/dL (31.0-37.0); MEAN CORPUSCULAR VOLUME 92 fL (80-100); MONOCYTES # (AUTO) 1.3 K/uL (0.1-1.0); MONOCYTES % (AUTO) 6.3 % (2.0-9.0); NEUTROPHILS # (AUTO) 16.4 K/uL (1.8-7.7); NEUTROPHILS % (AUTO) 82.5 % (40.0-70.0); PLATELET COUNT (AUTO) 504 K/uL (150-450); RED BLOOD CELL COUNT(AUTO) 2.34 MIL/uL (4.00-5.20); RED CELL DISTRIBUTION WIDTH 16.1 % (11.5-14.5)
[2021-01-15 07:21] LABS: HEMOGLOBIN 6.8 g/dL (12.0-16.0)
[2021-01-15] MEDS: VANCOMYCIN HCL 1 GM/D5% WATER 200 ML IV SCH (07:50)
[2021-01-15] MEDS: SPIRONOLACTONE 25 MG TABLET GT SCH ×2 (07:53→21:15)
[2021-01-15] MEDS: DOCUSATE SODIUM 100 MG/10 ML LIQUID UDCUP GT SCH ×2 (07:53→21:00)
[2021-01-15] MEDS: LISINOPRIL 20 MG TABLET GT SCH (07:53)
[2021-01-15] MEDS: CARVEDILOL 25 MG TABLET GT SCH ×2 (07:53→21:16)
[2021-01-15] MEDS: ASPIRIN 81 MG CHEWABLE TABLET GT SCH (07:54)
[2021-01-15] MEDS: PANTOPRAZOLE SODIUM 40 MG/VIAL IVP SCH (07:54)
[2021-01-15] MEDS ORDERED: AmLODIPine BESYLATE 5 MG TABLET GT SCH (09:00)
[2021-01-15] MEDS: LORazepam 2 MG/ML VIAL IVP PRN ×2 (11:11→16:43)
[2021-01-15] MEDS: LevETIRAcetam 750 MG in DEXTROSE 5%-WATER 100 ML IV SCH ×2 (11:12→22:34)
[2021-01-15 13:32] LABS: GLUCOMETER DEV NAME(LOC) 5S.2B; GLUCOSE,POINT OF CARE 219 MG/DL (70-110)
[2021-01-15] MEDS ORDERED: SODIUM CHLORIDE 0.9% 500 ML IV ONE (14:34)
[2021-01-15] MEDS: PIPERACILLIN SODIUM/TAZOBACTAM 2.25 GM in DEXTROSE 5%-WATER 50 ML IV SCH ×2 (17:23→23:29)
[2021-01-15 17:33] LABS: GLUCOMETER DEV NAME(LOC) 5N.3; GLUCOSE,POINT OF CARE 194 MG/DL (70-110)
[2021-01-15 18:44] LABS: GLUCOMETER DEV NAME(LOC) 5S.1; GLUCOSE,POINT OF CARE 303 MG/DL (70-110)
[2021-01-15] MEDS: PANTOPRAZOLE SODIUM 80 MG in SODIUM CHLORIDE 0.9% 100 ML IV SCH (21:16)
[2021-01-15] MEDS: ATORVASTATIN CALCIUM 40 MG TABLET GT SCH (21:16)
[2021-01-16] VITALS (7 sets, daily range): BP systolic 130–176; BP diastolic 59–85
[2021-01-16] MEDS: INSULIN REGULAR, HUMAN 100 UNITS/ML SQ PRN ×2 (00:32→05:26)
[2021-01-16 00:57] LABS: HEMATOCRIT 26.7 % (36-46); HEMOGLOBIN 8.6 g/dL (12.0-16.0)
[2021-01-16] MEDS: PANTOPRAZOLE SODIUM 80 MG in SODIUM CHLORIDE 0.9% 100 ML IV SCH ×2 (05:05→14:23)
[2021-01-16] MEDS: PIPERACILLIN SODIUM/TAZOBACTAM 2.25 GM in DEXTROSE 5%-WATER 50 ML IV SCH ×3 (05:06→18:46)
[2021-01-16] MEDS: LEVOTHYROXINE SODIUM 50 MCG TABLET GT SCH (05:16)
[2021-01-16 07:36] LABS: GLUCOMETER DEV NAME(LOC) 5S.1; GLUCOSE,POINT OF CARE 291 MG/DL (70-110)
[2021-01-16 07:36] LABS: GLUCOMETER DEV NAME(LOC) 5S.1; GLUCOSE,POINT OF CARE 299 MG/DL (70-110)
[2021-01-16 08:22] LABS: BASOPHILS % (AUTO) 0.4 % (0.0-2.0); EOSINOPHILS % (AUTO) 3.2 % (1.0-6.0); HEMATOCRIT 26.4 % (36-46); HEMOGLOBIN 8.6 g/dL (12.0-16.0); LYMPHOCYTES # (AUTO) 1.5 K/uL (1.0-4.8); LYMPHOCYTES % (AUTO) 8.7 % (22.0-44.0); MEAN CORPUSCULAR HEMOGLOBIN 29.9 pg (26.0-34.0); MEAN CORPUSCULAR HGB CONC 32.4 G/dL (31.0-37.0); MEAN CORPUSCULAR VOLUME 92 fL (80-100); MONOCYTES # (AUTO) 1.1 K/uL (0.1-1.0); MONOCYTES % (AUTO) 6.2 % (2.0-9.0); NEUTROPHILS # (AUTO) 14.4 K/uL (1.8-7.7); NEUTROPHILS % (AUTO) 81.5 % (40.0-70.0); PLATELET COUNT (AUTO) 480 K/uL (150-450); RED BLOOD CELL COUNT(AUTO) 2.86 MIL/uL (4.00-5.20); RED CELL DISTRIBUTION WIDTH 15.9 % (11.5-14.5)
[2021-01-16] MEDS: DOCUSATE SODIUM 100 MG/10 ML LIQUID UDCUP GT SCH ×2 (08:34→21:00)
[2021-01-16] MEDS: LISINOPRIL 20 MG TABLET GT SCH (08:35)
[2021-01-16] MEDS: CARVEDILOL 25 MG TABLET GT SCH ×2 (08:35→21:06)
[2021-01-16] MEDS: SPIRONOLACTONE 25 MG TABLET GT SCH ×2 (08:35→21:06)
[2021-01-16] MEDS: ASPIRIN 81 MG CHEWABLE TABLET GT SCH (08:35)
[2021-01-16] MEDS: VANCOMYCIN HCL 1 GM/D5% WATER 200 ML IV SCH (08:37)
[2021-01-16 08:55] LABS: CREATININE 1.28 mg/dL (0.60-1.30); POTASSIUM 4.1 mmol/L (3.5-5.1); VANCOMYCIN,RANDOM 29.5 mcg/mL (25.0-50.0)
[2021-01-16] MEDS: LevETIRAcetam 750 MG in DEXTROSE 5%-WATER 100 ML IV SCH ×2 (11:23→23:56)
[2021-01-16 13:33] LABS: HEMATOCRIT 28.7 % (36-46); HEMOGLOBIN 9.1 g/dL (12.0-16.0)
[2021-01-16 20:58] LABS: HEMATOCRIT 29.1 % (36-46); HEMOGLOBIN 9.3 g/dL (12.0-16.0)
[2021-01-16] MEDS: ATORVASTATIN CALCIUM 40 MG TABLET GT SCH (21:05)
[2021-01-16] MEDS: LORazepam 2 MG/ML VIAL IVP PRN (21:06)
[2021-01-16 21:43] LABS: GLUCOMETER DEV NAME(LOC) 5S.2B; GLUCOSE,POINT OF CARE 340 MG/DL (70-110)
[2021-01-17] VITALS (7 sets, daily range): BP systolic 123–173; BP diastolic 54–86
[2021-01-17] MEDS: INSULIN REGULAR, HUMAN 100 UNITS/ML SQ PRN ×5 (00:03→23:40)
[2021-01-17] MEDS: PIPERACILLIN SODIUM/TAZOBACTAM 2.25 GM in DEXTROSE 5%-WATER 50 ML IV SCH ×5 (00:08→23:57)
[2021-01-17] MEDS: PANTOPRAZOLE SODIUM 80 MG in SODIUM CHLORIDE 0.9% 100 ML IV SCH ×3 (00:17→20:53)
[2021-01-17 01:26] LABS: GLUCOMETER DEV NAME(LOC) 5N.3; GLUCOSE,POINT OF CARE 268 MG/DL (70-110)
[2021-01-17] MEDS: LORazepam 2 MG/ML VIAL IVP PRN (04:26)
[2021-01-17] MEDS: LEVOTHYROXINE SODIUM 50 MCG TABLET GT SCH (05:05)
[2021-01-17 08:19] LABS: HEMATOCRIT 26.5 % (36-46); HEMOGLOBIN 8.4 g/dL (12.0-16.0)
[2021-01-17 08:33] LABS: CALCIUM, TOTAL 8.2 mg/dL (8.8-10.5); CREATININE 1.15 mg/dL (0.60-1.30); POTASSIUM 4.5 mmol/L (3.5-5.1)
[2021-01-17] MEDS: DOCUSATE SODIUM 100 MG/10 ML LIQUID UDCUP GT SCH ×2 (09:00→20:58)
[2021-01-17] MEDS: ASPIRIN 81 MG CHEWABLE TABLET GT SCH (09:00)
[2021-01-17] MEDS: SPIRONOLACTONE 25 MG TABLET GT SCH ×2 (09:00→21:00)
[2021-01-17] MEDS: CARVEDILOL 25 MG TABLET GT SCH ×2 (09:00→20:59)
[2021-01-17] MEDS: LISINOPRIL 20 MG TABLET GT SCH (09:00)
[2021-01-17 09:38] LABS: GLUCOMETER DEV NAME(LOC) 5N.3; GLUCOSE,POINT OF CARE 266 MG/DL (70-110)
[2021-01-17] MEDS: LevETIRAcetam 750 MG in DEXTROSE 5%-WATER 100 ML IV SCH ×2 (11:32→23:27)
[2021-01-17] MEDS ORDERED: SODIUM CHLORIDE 0.9% 250 ML IV ONE (15:58)
[2021-01-17 19:48] LABS: GLUCOMETER DEV NAME(LOC) 5S.2B; GLUCOSE,POINT OF CARE 253 MG/DL (70-110)
[2021-01-17] MEDS: ATORVASTATIN CALCIUM 40 MG TABLET GT SCH (20:59)
[2021-01-18 02:55] LABS: GLUCOMETER DEV NAME(LOC) 5S.2B; GLUCOSE,POINT OF CARE 245 MG/DL (70-110)
[2021-01-18 04:05] VITALS: BP 145/89
[2021-01-18] MEDS: PIPERACILLIN SODIUM/TAZOBACTAM 2.25 GM in DEXTROSE 5%-WATER 50 ML IV SCH (05:06)
[2021-01-18] MEDS: LEVOTHYROXINE SODIUM 50 MCG TABLET GT SCH (06:00)
[2021-01-18] MEDS: INSULIN REGULAR, HUMAN 100 UNITS/ML SQ PRN ×2 (06:01→12:14)
[2021-01-18] MEDS: PANTOPRAZOLE SODIUM 80 MG in SODIUM CHLORIDE 0.9% 100 ML IV SCH ×2 (06:14→15:33)
[2021-01-18 07:09] LABS: CALCIUM, TOTAL 8.1 mg/dL (8.8-10.5); CREATININE 1.09 mg/dL (0.60-1.30); POTASSIUM 4.9 mmol/L (3.5-5.1)
[2021-01-18 07:18] VITALS: BP 162/74
[2021-01-18] MEDS ORDERED: VANCOMYCIN HCL 500 MG in DEXTROSE 5%-WATER 100 ML IV SCH (08:00)
[2021-01-18 08:22] LABS: GLUCOMETER DEV NAME(LOC) 5S.2B; GLUCOSE,POINT OF CARE 279 MG/DL (70-110)
[2021-01-18] MEDS: LISINOPRIL 20 MG TABLET GT SCH (09:45)
[2021-01-18] MEDS: ASPIRIN 81 MG CHEWABLE TABLET GT SCH (09:45)
[2021-01-18] MEDS: SPIRONOLACTONE 25 MG TABLET GT SCH (09:45)
[2021-01-18] MEDS: CARVEDILOL 25 MG TABLET GT SCH (09:45)
[2021-01-18] MEDS: DOCUSATE SODIUM 100 MG/10 ML LIQUID UDCUP GT SCH (09:45)
[2021-01-18 10:21] VITALS: BP 191/84
[2021-01-18 11:19] VITALS: BP 152/73
[2021-01-18] MEDS ORDERED: PIPERACILLIN/TAZO 3.375 GM/D5W 50 ML IV SCH (12:00)
[2021-01-18] MEDS: LevETIRAcetam 750 MG in DEXTROSE 5%-WATER 100 ML IV SCH (12:23)
[2021-01-18 12:42] LABS: GLUCOMETER DEV NAME(LOC) 5S.1; GLUCOSE,POINT OF CARE 265 MG/DL (70-110)
[2021-01-18] MEDS ORDERED: DOCU-270 GT (13:16)
[2021-01-18] MEDS ORDERED: LEVE250T4 GT (13:19)
[2021-01-18] MEDS ORDERED: PANT-31 GT (13:22)
[2021-01-18] MEDS ORDERED: ACET-2247 GT (13:27)
[2021-01-18] MEDS ORDERED: INSREG SQ (13:29)
[2021-01-18 15:53] VITALS: BP 162/74
[2021-01-20 12:02] LABS: GLUCOMETER DEV NAME(LOC) 5N.3; GLUCOSE,POINT OF CARE 267 MG/DL (70-110)
== END 2021-01-18 17:30 | DRG 53 ==
LOC: EMS 13:29 → 5S 17:03 → EMS 17:53
PROVIDERS: ADMIT Internal Medicine; ATTEND Internal Medicine
PROC: 30233N1 Transfusion of Nonautologous Red Blood Cells into Peripheral Vein, Percutaneous Approach (ICD-10-PCS; principal; 2021-01-15)
DX: G40.909 Epilepsy, unspecified, not intractable, without status epilepticus (principal); J96.91 Respiratory failure, unspecified with hypoxia; J69.0 Pneumonitis due to inhalation of food and vomit; L89.154 Pressure ulcer of sacral region, stage 4; R65.10 Systemic inflammatory response syndrome (SIRS) of non-infectious origin without acute organ dysfunction; K92.2 Gastrointestinal hemorrhage, unspecified; R47.01 Aphasia; D63.8 Anemia in other chronic diseases classified elsewhere; D64.9 Anemia, unspecified; I10 Essential (primary) hypertension; R13.10 Dysphagia, unspecified; R62.7 Adult failure to thrive; E11.9 Type 2 diabetes mellitus without complications; Z86.73 Personal history of transient ischemic attack (TIA), and cerebral infarction without residual deficits; Z68.22 Body mass index [BMI] 22.0-22.9, adult; Z74.01 Bed confinement status; Z20.822 Contact with and (suspected) exposure to COVID-19
CPT/HCPCS: 36245; 36569; 51702; 70450; 71045; 71250; 72192; 74150; 76937; 80048; 80053; 80202; 81001; 81002; 82271; 82550; 82962; 83605; 83880; 84145; 84439; 84443; 84484; 85014; 85018; 85025; 85610; 85730; 86850; 86900; 86901; 86923; 87040; 87081; 87804; 93005; 95816; 99285; C9113; G0378; J0131; J0696; J0712; J2060; J2543; J3370; J7030; J7040; J7050; J7060; P9016; 36415-L1; 36415-TC